=== PATIENT | female | born 1995 | race Caucasian/White ===

== ENCOUNTER 2016-06-07 18:44 | Emergency (ER) | payer OTHER ==
--- NOTE | 2016-06-07 19:24 | DIAGNOSTIC IMAGING REPORT ---
PROCEDURE: CT HEAD WITHOUT CONTRAST INDICATION: HEADACHE TECHNIQUE: Noncontrast axial images with sagittal and coronal reformations. COMPARISON: None. FINDINGS: Brain and ventricles are normal. No evidence of an acute process or hemorrhage. Sinuses and mastoids are normal. IMPRESSION: 1. Negative head CT. 2. Findings discussed with Dr. Kurtis Barbosa at [address] scans at this facility use dose modulation, iterative reconstruction, and/or weight-based dosing when appropriate to reduce radiation dose to as low as reasonably achievable.
--- NOTE | 2016-06-07 21:03 | ED NURSING NOTES ---
Clinical Report - Nurses [facility] [address] [place] [address] 06/07/2016 18:45 Patient: DAVID HALL TRIAGE Triage time 18:51 Jun 07 2016. Acuity: LEVEL 4. Chief Complaint: HEADACHE and VOMITING. 18:51 06/07/16. --18:57 Tiki Jackson R.N. 18:51 06/07/16. BP: 117/79. HR: 102. RR: 18. O2 saturation: 100%. Temp: 98.6 F. Pain level now: 12/12. --18:57 Tiki Jackson R.N. Weight: 97 kg stated. Height/Length: 63 inches Per Patient. BMI: 37.9. Growth Chart Percentile: Weight: 98.4%. Height/Length: 30.4%. --18:49 Tiki Jackson R.N. Medications None. --18:51 Tiki Jackson R.N. Medication/allergy information source: the patient. --18:57 Tiki Jackson R.N. Allergies No Known Drug Allergy. --18:51 Tiki Jackson R.N. History Arrived by private vehicle. Historian: patient. Accompanied by family. This started 7 days ago. ( States onset last friday, pain between temples, behind eyes and going to back of head . last headache like this was when she was 15). She has had nausea. ( vomiting last night once, photophobia). No vomiting. 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 PAST MEDICAL HX: Last normal menstrual period- 3 months ago. 1. Para 1. Uses depo injections. SOCIAL HX: Never smoker. No alcohol use or drug use. No recent travel. No known contact with a sick individual. ABUSE ASSESSMENT: No report of abuse. SELF HARM ASSESSMENT: A self harm assessment was performed. The patient answered "no" to the question "Have you recently felt down, depressed, or hopeless?", "Have you noticed less interest or pleasure in doing things?", "Do you have thoughts of harming or killing yourself?", "Are you here because you tried to hurt yourself?", "Have you ever tried to hurt yourself before today?", "Have you recently had thoughts about harming or killing others?" and "Do you have any dangerous items in your possession?". FALL RISK ASSESSMENT: Fall risk assessment completed. No fall risk identified. NUTRITIONAL RISK ASSESSMENT: The nutritional risk assessment revealed no deficiencies. FUNCTIONAL ASSESSMENT: Functional assessment: no impairments noted. LEARNING NEEDS ASSESSMENT: The learning needs assessment revealed no barriers. SKIN INTEGRITY ASSESSMENT: Skin integrity risk assessment completed. No skin integrity risk identified. --18:57 Tiki Jackson R.N. PROBLEMS: Vaginitis. --18:52 Tiki Jackson R.N. ADDITIONAL SURGERIES: Adenoidectomy. Appendectomy. Knee Surgery. Tonsillectomy. Trigger finger release. --18:52 Tiki Jackson R.N. Interventions ID band on patient. --18:57 Tiki Jackson R.N. NURSING PROGRESS NOTES 19:20 06/07/2016 Dilaudid (HYDROmorphone HCl PF) IM 2 mg given. Given in the right gluteus barrera. Allergies verified, confirmed 5 rights and sedative warning given to the patient. --19:23 Tiki Jackson R.N. 19:20 06/07/2016 Phenergan (Promethazine HCl) IM 25 mg given. Given in the right gluteus barrera. Allergies verified, confirmed 5 rights and sedative warning given to the patient. --19:24 Tiki Jackson R.N. 20:30 06/07/2016 Dilaudid (HYDROmorphone HCl PF) IM 1 mg given. Given in the left gluteus barrera. Allergies verified, confirmed 5 rights and sedative warning given to the patient. --20:32 Tiki Jackson R.N. 20:30 06/07/2016 Ativan (LORazepam) IM 1 mg given. Given in the left gluteus barrera. Allergies verified, confirmed 5 rights and sedative warning given to the patient and patient's family. --20:32 Tiki Jackson R.N. 20:33 06/07/2016 Zofran ODT (Ondansetron) PO Oral Disintegrating Tablets 4 mg given. Allergies verified and confirmed 5 rights. --20:33 Tiki Jackson R.N. DISPOSITION / DISCHARGE 21:06 06/07/16. Departure time: 21:06 Jun 07 2016. Condition at departure: improved and stable. The goals identified in the patient's plan of care were met. No learning barriers present. --19:06 Tiki Jackson R.N. 18:51 06/07/16. BP: 117/79. HR: 102. RR: 18. O2 saturation: 100%. Temp: 98.6 F. Pain level now: 12/12. --19:06 Tiki Jackson R.N. Locked/Released at 06/08/2016 19:06 by Tiki Jackson R.N.
--- NOTE | 2016-06-07 21:03 | ED CLINICAL REPORT ---
Clinical Report - Physicians/Mid Levels [facility] [address] [place] [address] 06/07/2016 18:45 [id number] Time Seen: 18:52 Jun 07 2016. Arrived- By private vehicle. Historian- patient. CPT: ER phys charges level 4 (#[id number]). HISTORY OF PRESENT ILLNESS Is still present. Chief Complaint: HEADACHE and MIGRAINE HEADACHE. 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 It is described as similar to previous headaches. Located in the region of the right eye and left eye and frontal and occipital region. At its maximum, severity described as moderate. When seen in the E.D., severity described as moderate. The patient has had photophobia and nausea. She has had vomiting (yesterday). No blurred vision. Similar symptoms previously: Several times, as bad. Recent medical care: The patient was seen recently at another facility in the office (yesterday). Seen for similar symptoms. Evaluation/treatment: medication and pain medication prescribed. Diagnosis: migraine. ( Vicodin). REVIEW OF SYSTEMS No fever, muscle aches, sinus pressure, ear pain or sore throat. No head injury, chest pain, difficulty breathing, cough or abdominal pain. No diarrhea, pain with urination, skin rash, enlarged lymph nodes or back pain. All systems otherwise negative, except as recorded above. PAST HISTORY History of occasional chronic migraine headaches; Chronic recurrent headaches diagnosed at age 15 called migraines. Patient said she was given medications for this but never had a CT or MRI of her head nor has she had a neurology consult. Has had no evaluation with CT scan for this. Has had no evaluation with MRI scan for this. Has had no evaluation with a neurologist for this. Medications: None. Allergies: No Known Drug Allergy. SOCIAL HISTORY Never smoker. No alcohol use or drug use. ADDITIONAL NOTES The nursing notes have been reviewed. PHYSICAL EXAM Vital Signs: 06/07/2016 18:51 BP: 117/79. HR: 102. RR: 18. O2 saturation: 100%. Temp: 98.6 F. Pain level now: 8/10. Appearance: Alert. Appears to be in pain. Patient in mild distress. Eyes: Photophobia present. Pupils equal, round and reactive to light. ENT: Ears normal. Nose normal. Pharynx normal. Neck: Normal inspection. Neck supple. No meningeal signs. CVS: Normal heart rate and rhythm. Heart sounds normal. Pulses normal. Respiratory: No respiratory distress. Breath sounds normal. Abdomen: Soft and nontender. Back: Normal inspection. Skin: Skin warm. Normal skin color. No rash. Extremities: Extremities exhibit normal ROM. No lower extremity edema. Neuro: Oriented X 3. Alert. Mood/affect normal. Speech normal. Cranial nerves normal (as tested). No cerebellar findings. No motor deficit. No sensory deficit. Reflexes normal. LABS, X-RAYS, AND EKG CT Head: Normal study. No acute changes. Head CT performed without contrast. The study was interpreted by the radiologist and discussed with the radiologist. PROGRESS AND PROCEDURES Course of Care: Dilaudid 2 mg IM. Phenergan 25 mg IM Dilaudid 1 mg IM Ativan 1 mg IM Patient is stable. Symptoms much better. Patient/family counseled. Disposition: Discharged. Condition: stable and improved. CLINICAL IMPRESSION Acute and chronic recurrent migraine headache without aura, with status migrainosus- poorly controlled. No hemiplegia. INSTRUCTIONS (Hot packs to the neck 3 times a day.). Warnings: Further evaluation is necessary. SEDATIVE MEDICATION: You were given sedative medication during your visit. Do not drive or operate dangerous machinery. GENERAL WARNINGS: Return or contact your physician immediately if your condition worsens or changes unexpectedly, if not improving as expected, or if other problems arise. Prescription Medications: Flexeril 5 mg: take 1 orally every 6 hours as needed for pain. Dispense ten (10). No refills. Substitution is permissible. Follow-up: Follow up with your doctor in one week. Call for an appointment. Follow up with a neurologist in one week. Call for the next available appointment. Understanding of the discharge instructions verbalized by patient and family. (Electronically signed by Kurtis Barbosa MD 06/11/2016 21:49)
--- NOTE | 2016-06-07 21:03 | ED NURSING NOTES ---
Clinical Report - Nurses [facility] [address] [place] [address] 06/07/2016 18:45 Patient: DAVID HALL TRIAGE Triage time 18:51 Jun 07 2016. Acuity: LEVEL 4. Chief Complaint: HEADACHE and VOMITING. 18:51 06/07/16. --18:57 Tiki Jackson R.N. 18:51 06/07/16. BP: 117/79. HR: 102. RR: 18. O2 saturation: 100%. Temp: 98.6 F. Pain level now: 12/12. --18:57 Tiki Jackson R.N. Weight: 97 kg stated. Height/Length: 63 inches Per Patient. BMI: 37.9. Growth Chart Percentile: Weight: 98.4%. Height/Length: 30.4%. --18:49 Tiki Jackson R.N. Medications None. --18:51 Tiki Jackson R.N. Medication/allergy information source: the patient. --18:57 Tiki Jackson R.N. Allergies No Known Drug Allergy. --18:51 Tiki Jackson R.N. History Arrived by private vehicle. Historian: patient. Accompanied by family. This started 7 days ago. ( States onset last friday, pain between temples, behind eyes and going to back of head . last headache like this was when she was 15). She has had nausea. ( vomiting last night once, photophobia). No vomiting. 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 PAST MEDICAL HX: Last normal menstrual period- 3 months ago. 1. Para 1. Uses depo injections. SOCIAL HX: Never smoker. No alcohol use or drug use. No recent travel. No known contact with a sick individual. ABUSE ASSESSMENT: No report of abuse. SELF HARM ASSESSMENT: A self harm assessment was performed. The patient answered "no" to the question "Have you recently felt down, depressed, or hopeless?", "Have you noticed less interest or pleasure in doing things?", "Do you have thoughts of harming or killing yourself?", "Are you here because you tried to hurt yourself?", "Have you ever tried to hurt yourself before today?", "Have you recently had thoughts about harming or killing others?" and "Do you have any dangerous items in your possession?". FALL RISK ASSESSMENT: Fall risk assessment completed. No fall risk identified. NUTRITIONAL RISK ASSESSMENT: The nutritional risk assessment revealed no deficiencies. FUNCTIONAL ASSESSMENT: Functional assessment: no impairments noted. LEARNING NEEDS ASSESSMENT: The learning needs assessment revealed no barriers. SKIN INTEGRITY ASSESSMENT: Skin integrity risk assessment completed. No skin integrity risk identified. --18:57 Tiki Jackson R.N. PROBLEMS: Vaginitis. --18:52 Tiki Jackson R.N. ADDITIONAL SURGERIES: Adenoidectomy. Appendectomy. Knee Surgery. Tonsillectomy. Trigger finger release. --18:52 Tiki Jackson R.N. Interventions ID band on patient. --18:57 Tiki Jackson R.N. NURSING PROGRESS NOTES 19:20 06/07/2016 Dilaudid (HYDROmorphone HCl PF) IM 2 mg given. Given in the right gluteus barrera. Allergies verified, confirmed 5 rights and sedative warning given to the patient. --19:23 Tiki Jackson R.N. 19:20 06/07/2016 Phenergan (Promethazine HCl) IM 25 mg given. Given in the right gluteus barrera. Allergies verified, confirmed 5 rights and sedative warning given to the patient. --19:24 Tiki Jackson R.N. 20:30 06/07/2016 Dilaudid (HYDROmorphone HCl PF) IM 1 mg given. Given in the left gluteus barrera. Allergies verified, confirmed 5 rights and sedative warning given to the patient. --20:32 Tiki Jackson R.N. 20:30 06/07/2016 Ativan (LORazepam) IM 1 mg given. Given in the left gluteus barrera. Allergies verified, confirmed 5 rights and sedative warning given to the patient and patient's family. --20:32 Tiki Jackson R.N. 20:33 06/07/2016 Zofran ODT (Ondansetron) PO Oral Disintegrating Tablets 4 mg given. Allergies verified and confirmed 5 rights. --20:33 Tiki Jackson R.N. DISPOSITION / DISCHARGE 21:06 06/07/16. Departure time: 21:06 Jun 07 2016. Condition at departure: improved and stable. The goals identified in the patient's plan of care were met. No learning barriers present. --19:06 Tiki Jackson R.N. 18:51 06/07/16. BP: 117/79. HR: 102. RR: 18. O2 saturation: 100%. Temp: 98.6 F. Pain level now: 12/12. --19:06 Tiki Jackson R.N. Locked/Released at 06/08/2016 19:06 by Tiki Jackson R.N.
--- NOTE | 2016-06-07 21:03 | ED CLINICAL REPORT ---
Clinical Report - Physicians/Mid Levels [facility] [address] [place] [address] 06/07/2016 18:45 [id number] Time Seen: 18:52 Jun 07 2016. Arrived- By private vehicle. Historian- patient. CPT: ER phys charges level 4 (#[id number]). HISTORY OF PRESENT ILLNESS Is still present. Chief Complaint: HEADACHE and MIGRAINE HEADACHE. 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 It is described as similar to previous headaches. Located in the region of the right eye and left eye and frontal and occipital region. At its maximum, severity described as moderate. When seen in the E.D., severity described as moderate. The patient has had photophobia and nausea. She has had vomiting (yesterday). No blurred vision. Similar symptoms previously: Several times, as bad. Recent medical care: The patient was seen recently at another facility in the office (yesterday). Seen for similar symptoms. Evaluation/treatment: medication and pain medication prescribed. Diagnosis: migraine. ( Vicodin). REVIEW OF SYSTEMS No fever, muscle aches, sinus pressure, ear pain or sore throat. No head injury, chest pain, difficulty breathing, cough or abdominal pain. No diarrhea, pain with urination, skin rash, enlarged lymph nodes or back pain. All systems otherwise negative, except as recorded above. PAST HISTORY History of occasional chronic migraine headaches; Chronic recurrent headaches diagnosed at age 15 called migraines. Patient said she was given medications for this but never had a CT or MRI of her head nor has she had a neurology consult. Has had no evaluation with CT scan for this. Has had no evaluation with MRI scan for this. Has had no evaluation with a neurologist for this. Medications: None. Allergies: No Known Drug Allergy. SOCIAL HISTORY Never smoker. No alcohol use or drug use. ADDITIONAL NOTES The nursing notes have been reviewed. PHYSICAL EXAM Vital Signs: 06/07/2016 18:51 BP: 117/79. HR: 102. RR: 18. O2 saturation: 100%. Temp: 98.6 F. Pain level now: 8/10. Appearance: Alert. Appears to be in pain. Patient in mild distress. Eyes: Photophobia present. Pupils equal, round and reactive to light. ENT: Ears normal. Nose normal. Pharynx normal. Neck: Normal inspection. Neck supple. No meningeal signs. CVS: Normal heart rate and rhythm. Heart sounds normal. Pulses normal. Respiratory: No respiratory distress. Breath sounds normal. Abdomen: Soft and nontender. Back: Normal inspection. Skin: Skin warm. Normal skin color. No rash. Extremities: Extremities exhibit normal ROM. No lower extremity edema. Neuro: Oriented X 3. Alert. Mood/affect normal. Speech normal. Cranial nerves normal (as tested). No cerebellar findings. No motor deficit. No sensory deficit. Reflexes normal. LABS, X-RAYS, AND EKG CT Head: Normal study. No acute changes. Head CT performed without contrast. The study was interpreted by the radiologist and discussed with the radiologist. PROGRESS AND PROCEDURES Course of Care: Dilaudid 2 mg IM. Phenergan 25 mg IM Dilaudid 1 mg IM Ativan 1 mg IM Patient is stable. Symptoms much better. Patient/family counseled. Disposition: Discharged. Condition: stable and improved. CLINICAL IMPRESSION Acute and chronic recurrent migraine headache without aura, with status migrainosus- poorly controlled. No hemiplegia. INSTRUCTIONS (Hot packs to the neck 3 times a day.). Warnings: Further evaluation is necessary. SEDATIVE MEDICATION: You were given sedative medication during your visit. Do not drive or operate dangerous machinery. GENERAL WARNINGS: Return or contact your physician immediately if your condition worsens or changes unexpectedly, if not improving as expected, or if other problems arise. Prescription Medications: Flexeril 5 mg: take 1 orally every 6 hours as needed for pain. Dispense ten (10). No refills. Substitution is permissible. Follow-up: Follow up with your doctor in one week. Call for an appointment. Follow up with a neurologist in one week. Call for the next available appointment. Understanding of the discharge instructions verbalized by patient and family. (Electronically signed by Kurtis Barbosa MD 06/11/2016 21:49)
--- NOTE | 2016-06-07 21:03 | ED ORDER SUMMARY ---
..... Patient: DAVID HALL OrderSheet [facility] VisitID: [id number] [place] [address] 20y, F Registration Date/Time: 06/07/2016 ORDER SHEET Weight: 97.0 kg (stated) Allergies: No Known Drug Allergy GENERAL ORDERS: CT Head wo Cont Urgent (19:06/07/2016 Marion MALIK) (Ack 19:12 RKaruga) MEDICATION ORDERS: Dilaudid IM 2 mg (NOW) (19:06/07/2016 Marion MALIK) (19:23 EInderbitzen R.N.) Phenergan IM 25 mg (NOW) (19:06/07/2016 Marion MALIK) (19:24 EInderbitzen R.N.) Dilaudid IM 1 mg (NOW) (20:10 06/07/2016 Marion MALIK) (20:32 EInderbharatzen R.N.) Ativan IM 1 mg (NOW) (20:10 06/07/2016 Marion MALIK) (20:32 EInderbitzen R.N.) Zofran ODT PO 4 mg (NOW) (20:11 06/07/2016 Marion MALIK) (20:33 EInderbitzen R.N.) IV FLUIDS: ORDER SHEET NOTES: [Electronically signed by Tiki Jackson R.N. (19:06 06/08/2016)] [Electronically signed by Kurtis Barbosa MD (21:49 06/11/2016)] [Electronically locked/signed by Tiki Jackson R.N. (19:06 06/08/2016)]
--- NOTE | 2016-06-07 21:03 | ED ORDER SUMMARY ---
..... Patient: DAVID HALL OrderSheet [facility] VisitID: [id number] [place] [address] 20y, F Registration Date/Time: 06/07/2016 ORDER SHEET Weight: 97.0 kg (stated) Allergies: No Known Drug Allergy GENERAL ORDERS: CT Head wo Cont Urgent (19:06/07/2016 Marion MALIK) (Ack 19:12 RKaruga) MEDICATION ORDERS: Dilaudid IM 2 mg (NOW) (19:06/07/2016 Marion MALIK) (19:23 EInderbitzen R.N.) Phenergan IM 25 mg (NOW) (19:06/07/2016 Marion MALIK) (19:24 EInderbitzen R.N.) Dilaudid IM 1 mg (NOW) (20:10 06/07/2016 Marion MALIK) (20:32 EInderbharatzen R.N.) Ativan IM 1 mg (NOW) (20:10 06/07/2016 Marion MALIK) (20:32 EInderbitzen R.N.) Zofran ODT PO 4 mg (NOW) (20:11 06/07/2016 Marion MALIK) (20:33 EInderbitzen R.N.) IV FLUIDS: ORDER SHEET NOTES: [Electronically signed by Tiki Jackson R.N. (19:06 06/08/2016)] [Electronically signed by Kurtis Barbosa MD (21:49 06/11/2016)] [Electronically locked/signed by Tiki Jackson R.N. (19:06 06/08/2016)]
--- NOTE | 2016-06-11 21:49 | ED DISCHARGE INSTRUCTIONS ---
Patient: DAVID HALL General Instructions [facility] VisitID: [id number] [place] [address] 20y, F Registration Date/Time: 06/07/2016 Acute and chronic recurrent migraine headache without aura, with status migrainosus- poorly controlled. No hemiplegia. INSTRUCTIONS (Hot packs to the neck 3 times a day.). Warnings: Further evaluation is necessary. SEDATIVE MEDICATION: You were given sedative medication during your visit. Do not drive or operate dangerous machinery. GENERAL WARNINGS: Return or contact your physician immediately if your condition worsens or changes unexpectedly, if not improving as expected, or if other problems arise. Prescription Medications: Flexeril 5 mg: take 1 orally every 6 hours as needed for pain. Dispense ten (10). No refills. Substitution is permissible. Follow-up: Follow up with your doctor in one week. Call for an appointment. Follow up with a neurologist in one week. Call for the next available appointment. Understanding of the discharge instructions verbalized by patient and family. ADDITIONAL INFORMATION Migraine Headache Migraine headaches are related to changes in blood flow to the brain. This causes throbbing or constant pain on one or both sides of the head. The pain may last from a few hours to several days. There is usually nausea, vomiting, sensitivity to light and sound, and blurred vision. A migraine attack may be triggered by emotional stress, hormone changes during the menstrual cycle, oral contraceptives, alcohol use, certain foods containing tyramine, eye strain, weather changes, missing meals, or too little or too much sleep. Home Care For This Headache: 1) If you were given pain medicine for this headache, do not drive yourself home . Arrange for a ride, instead. When you get home, try to sleep. You should feel much better when you wake up. 2) Migraine headaches may improve with an ice pack on the forehead or at the base of the skull. Heat to the back of your neck may relieve any neck spasm. 3) Drink only clear liquids or eat a very light diet to avoid nausea/vomiting until symptoms improve. Preventing Future Headaches: 1) Pay attention to those factors that seem to trigger your headache. Try to avoid them when you can. If you have frequent headaches, it is useful to keep a diary of what you were doing, feeling or eating in the hours before each attack. Show this to your doctor to help find the cause of your headaches. a) If you feel that stress is a factor in your headaches, look at the sources of stress in your life. Find ways to release the build-up of those stresses by using regular exercise, relaxation methods (yoga, meditation), bio-feedback or simply taking time-out for yourself. For more information about this, consult your doctor or go to a local bookstore and review books and tapes on this subject. b) Tyramine is a substance present in the following foods : chocolate, yogurt, all cheeses except cottage cheese and cream cheese. smoked or pickled fish and meat (including cruz, caviar, bologna, pepperoni, salami), liver, avocados, bananas, figs, raisins, and red wine. Be aware that these foods may trigger a migraine in some persons. Try taking these foods out of your diet for 1-2 months to see if this reduces headache frequency. Treating Future Attacks: 1) At the first sign of a headache, take time out if possible. Find a quiet, dark, comfortable place to sit or lie down. Let yourself relax or sleep. 2) An ice pack on the forehead or area of greatest pain may help. If you are having muscle spasm and tightness of the neck, a heating pad and massage to this area may be helpful. 3) If you have been prescribed a medicine to stop a migraine headache, use this at the very first warning sign of the headache (aura or initial pain) for best results. Follow Up with your doctor if the headache is not better within the next 24 hours. If you have frequent headaches you should discuss a treatment plan with your primary care doctor. Ask if you can have medicine to take at home the next time you get a bad headache. Poorly controlled chronic headaches may require a referral to a neurologist (headache specialist). Get Prompt Medical Attention if any of the following occur: Your head pain gets worse, or does not improve within 24 hours Repeated vomiting (cant keep liquids down) Sinus or ear or throat pain (not already reported) Fever of 100.4 F (38 C) or higher, or as directed by your healthcare provider Stiff neck Extreme drowsiness, confusion or fainting Dizziness, vertigo (dizziness with spinning sensation) Weakness of an arm or leg or one side of the face Difficulty with speech or vision Cyclobenzaprine Hydrochloride Oral tablet What is this medicine? CYCLOBENZAPRINE (wade aguilar) is a muscle relaxer. It is used to treat muscle pain, spasms, and stiffness. How should I use this medicine? Take this medicine by mouth with a glass of water. Follow the directions on the prescription label. If this medicine upsets your stomach, take it with food or milk. Take your medicine at regular intervals. Do not take it more often than directed. Talk to your chamber worker regarding the use of this medicine in children. Special care may be needed. What side effects may I notice from receiving this medicine? Side effects that you should report to your doctor or health companion caregiver as soon as possible: allergic reactions like skin rash, itching or hives, swelling of the face, lips, or tongue chest pain fast heartbeat hallucinations seizures vomiting Side effects that usually do not require medical attention (report to your doctor or health companion caregiver if they continue or are bothersome): headache What may interact with this medicine? Do not take this medicine with any of the following medications: cisapride droperidol flecainide grepafloxacin halofantrine levomethadyl MAOIs like Carbex, Eldepryl, Marplan, Nardil, and Parnate nilotinib pimozide probucol sertindole This medicine may also interact with the following medications: abarelix alcohol contrast dyes dolasetron guanethidine medicines for cancer medicines for depression, anxiety, or psychotic disturbances medicines to treat an irregular heartbeat medicines used for sleep or numbness during surgery or procedure methadone octreotide ondansetron palonosetron phenothiazines like chlorpromazine, mesoridazine, prochlorperazine, thioridazine some medicines for infection like alfuzosin, chloroquine, clarithromycin, levofloxacin, mefloquine, pentamidine, troleandomycin tramadol vardenafil What if I miss a dose? If you miss a dose, take it as soon as you can. If it is almost time for your next dose, take only that dose. Do not take double or extra doses. Where should I keep my medicine? Keep out of the reach of children. Store at room temperature between 15 and 30 degrees C (59 and 86 degrees F). Keep container tightly closed. Throw away any unused medicine after the expiration date. What should I tell my health care provider before I take this medicine? They need to know if you have any of these conditions: heart disease, irregular heartbeat, or previous heart attack liver disease thyroid problem an unusual or allergic reaction to cyclobenzaprine, tricyclic antidepressants, lactose, other medicines, foods, dyes, or preservatives or trying to get breast-feeding What should I watch for while using this medicine? Check with your doctor or health companion caregiver if your condition does not improve within 1 to 3 weeks. You may get drowsy or dizzy when you first start taking the medicine or change doses. Do not drive, use machinery, or do anything that may be dangerous until you know how the medicine affects you. Stand or sit up slowly. Your mouth may get dry. Drinking water, chewing sugarless gum, or sucking on hard candy may help. You have been given the following additional information: Headache, Migraine (Classical) Cyclobenzaprine Hydrochloride Oral tablet (Electronically signed by Kurtis Barbosa MD 06/11/2016 21:49)
--- NOTE | 2016-06-11 21:49 | ED MAR SUMMARY ---
..... Medication Administration Record [facility] [address] [place] [address] Patient: DAVID HALL Visit ID: [id number] 20y, F Weight: 97.0 kg Height/Length: 63 in BMI: 37.9 ALLERGIES: No Known Drug Allergy Given 19:06/07/2016 Tiki Jackson R.N. Medication Administered: DILAUDID [IM] (HYDROMORPHONE HCL PF), Dose: 2 mg IM. Medication Ordered: Dilaudid IM 2 mg (NOW). Given 19:06/07/2016 Tiki Jackson R.N. Medication Administered: PHENERGAN [IM] (PROMETHAZINE HCL), Dose: 25 mg IM. Medication Ordered: Phenergan IM 25 mg (NOW). Given 20:06/07/2016 Tiki Jackson R.N. Medication Administered: DILAUDID [IM] (HYDROMORPHONE HCL PF), Dose: 1 mg IM. Medication Ordered: Dilaudid IM 1 mg (NOW). Given 20:06/07/2016 Tiki Jackson R.N. Medication Administered: ATIVAN [IM] (LORAZEPAM), Dose: 1 mg IM. Medication Ordered: Ativan IM 1 mg (NOW). Given 20:06/07/2016 Tiki Jackson R.N. Medication Administered: ZOFRAN ODT [PO] (ONDANSETRON), Dose: 4 mg Oral Disintegrating Tablets PO. Medication Ordered: Zofran ODT PO 4 mg (NOW).
--- NOTE | 2016-06-11 21:49 | ED MED RECONCILIATION SUMMARY ---
Patient: DAVID HALL Medication Reconciliation Report [facility] VisitID: [id number] [place] [address] 20y, F Registration Date/Time: 06/07/2016 Weight: 97.0 kg Height/Length: 63 in. BMI: 37.9 ALLERGIES: No Known Drug Allergy The patient's Home Medications are listed below: NONE. The source(s) of the original Home Medication information: patient The following Medications were given to the patient in the Emergency Department: Dilaudid [IM] IM 2 mg, administered: 06/07/2016 7:20:00 PM Phenergan [IM] IM 25 mg, administered: 06/07/2016 7:20:00 PM Dilaudid [IM] IM 1 mg, administered: 06/07/2016 8:30:00 PM Ativan [IM] IM 1 mg, administered: 06/07/2016 8:30:00 PM Zofran ODT [PO] PO 4 mg, administered: 06/07/2016 8:33:00 PM The following Medications were prescribed to the patient: Flexeril 5 mg: take 1 orally every 6 hours as needed for pain. Dispense ten (10). No refills. Substitution is permissible. -- Kurtis Barbosa MD
--- NOTE | 2016-06-11 21:49 | ED MED RECONCILIATION SUMMARY ---
Patient: DAVID HALL Medication Reconciliation Report [facility] VisitID: [id number] [place] [address] 20y, F Registration Date/Time: 06/07/2016 Weight: 97.0 kg Height/Length: 63 in. BMI: 37.9 ALLERGIES: No Known Drug Allergy The patient's Home Medications are listed below: NONE. The source(s) of the original Home Medication information: patient The following Medications were given to the patient in the Emergency Department: Dilaudid [IM] IM 2 mg, administered: 06/07/2016 7:20:00 PM Phenergan [IM] IM 25 mg, administered: 06/07/2016 7:20:00 PM Dilaudid [IM] IM 1 mg, administered: 06/07/2016 8:30:00 PM Ativan [IM] IM 1 mg, administered: 06/07/2016 8:30:00 PM Zofran ODT [PO] PO 4 mg, administered: 06/07/2016 8:33:00 PM The following Medications were prescribed to the patient: Flexeril 5 mg: take 1 orally every 6 hours as needed for pain. Dispense ten (10). No refills. Substitution is permissible. -- Kurtis Barbosa MD
--- NOTE | 2016-06-11 21:49 | ED MAR SUMMARY ---
..... Medication Administration Record [facility] [address] [place] [address] Patient: DAVID HALL Visit ID: [id number] 20y, F Weight: 97.0 kg Height/Length: 63 in BMI: 37.9 ALLERGIES: No Known Drug Allergy Given 19:06/07/2016 Tiki Jackson R.N. Medication Administered: DILAUDID [IM] (HYDROMORPHONE HCL PF), Dose: 2 mg IM. Medication Ordered: Dilaudid IM 2 mg (NOW). Given 19:06/07/2016 Tiki Jackson R.N. Medication Administered: PHENERGAN [IM] (PROMETHAZINE HCL), Dose: 25 mg IM. Medication Ordered: Phenergan IM 25 mg (NOW). Given 20:06/07/2016 Tiki Jackson R.N. Medication Administered: DILAUDID [IM] (HYDROMORPHONE HCL PF), Dose: 1 mg IM. Medication Ordered: Dilaudid IM 1 mg (NOW). Given 20:06/07/2016 Tiki Jackson R.N. Medication Administered: ATIVAN [IM] (LORAZEPAM), Dose: 1 mg IM. Medication Ordered: Ativan IM 1 mg (NOW). Given 20:06/07/2016 Tiki Jackson R.N. Medication Administered: ZOFRAN ODT [PO] (ONDANSETRON), Dose: 4 mg Oral Disintegrating Tablets PO. Medication Ordered: Zofran ODT PO 4 mg (NOW).
[2016-08-01] MEDS ORDERED: DEPO-PROVER150 MG/ML (15:46)
[2016-08-01] MEDS ORDERED: ADVIL200 M1 PO (15:47)
== END 2016-06-07 21:06 | disposition home or self-care (01) ==
LOC: ED SRH 18:44
DX: G43.711 Chronic migraine without aura, intractable, with status migrainosus (principal)

== ENCOUNTER 2016-07-20 17:54 | Emergency (ER) | payer OTHER ==
--- NOTE | 2016-07-20 19:50 | ED NURSING NOTES ---
Clinical Report - Nurses [facility] [address] [place] [address] 07/20/2016 17:55 [id number] Triage time 17:59 Jul 20 2016. Acuity: LEVEL 4. Chief Complaint: ABDOMINAL PAIN, NAUSEA, VOMITING and DIARRHEA and (RUQ pain radiates to back, nausea and vomiting as well). 18:07 07/20/16. SEPSIS SCREEN: Sepsis Screen. Negative (no infection suspected/documented). THA COMA SCORE: Tha Coma Scale: 15- eyes open spontaneously (4); best verbal response- oriented x 4 (5); best motor response- obeys commands (6). --18:07 Amina Pickett R.N. 17:59 07/20/16. BP: 128/81 (regular adult cuff) taken on the left arm, while sitting. HR: 108. RR: 18 (regular). O2 saturation: 100% on room air. Temp: 98.4 F (oral). Pain level now: 08/12. --18:07 Amina Pickett R.N. Weight: 92.5 kg stated. Height/Length: 62 inches Per Patient. BMI: 37.3. Growth Chart Percentile: Weight: 97.7%. Height/Length: 18%. --18:00 Amina Pickett R.N. Medications None. --18:01 Amina Pickett R.N. Allergies No Known Drug Allergy. --18:01 Amina Pickett R.N. History Historian: patient. Primary physician (KATELYNN FRANCO). This started yesterday. Onset. (RUQ pain radiates to back, nausea and vomiting as well). She has had nausea, vomiting and diarrhea. She has had abdominal pain (Patient has had her appendix removed). The pain is described as located in the RUQ. She has had fever (fever yesterday). Last oral intake by patient was (on way over). PAST MEDICAL HX: Immunizations: up-to-date. Last normal menstrual period- Patient on Depo Provera shots. SOCIAL HX: Never smoker. No alcohol use or drug use. No recent travel. She has had contact with a sick family member. (Son had pneumonia). No infectious disease exposure. ABUSE ASSESSMENT: No report of abuse. --18:07 Amina Pickett R.N. PROBLEMS: Migraine Headache. Chronic Headache. Intrauterine . Vaginitis. Gastroenteritis. Polycystic Ovary Disease. --18: Amina Pickett R.N. ADDITIONAL SURGERIES: Adenoidectomy. Appendectomy. Knee Surgery. Tonsillectomy. Trigger finger release. --18: Amina Pickett R.N. Interventions ID band on patient. To treatment room. --18:07 Amina Pickett R.N. PHYSICAL ASSESSMENT 18:08 07/20/16. Ambulatory to room. GENERAL / NEURO / PSYCH: Alert. Oriented X 4. Appears in pain. HEENT: Mucous membranes are pink. RESPIRATORY: Respirations not labored. Breath sounds within normal limits. CVS: Capillary refill less than 2 seconds. GI / : The patient has had nausea and diarrhea. Abdomen soft. Abdominal tenderness in the right upper quadrant. Guarding present. Bowel sounds within normal limits. Green and yellow stool. SKIN: Skin is warm. --18:08 Amina Pickett R.N. NURSING PROGRESS NOTES 18:07/20/16. The plan of care for this patient has been created. Patient gowned. Head of bed elevated. Reassurance given. Two patient identifiers checked. Call light placed in reach. Side rails up x 1. Bed placed in lowest position. Brakes of bed on. Patient ready for evaluation- chart flagged and ED physician notified. --18:08 Amina Pickett R.N. 18:42 07/20/2016 Site #1 started via IV in the right antecubital space with an 20g angiocath, with aseptic technique and good blood return; one attempt. Blood drawn: rainbow set. Labeled in the presence of the patient and sent to the lab. Saline lock flushed with 10 mL saline. --18:42 Amina Pickett R.N. 18:42 07/20/2016 Started bag #1 1000 mL IV Fluids IV NS (Saline); at 1000 mL/hr over 1 hour(s) via site #1 via dial-a-flow. Allergies verified and confirmed 5 rights. IV patency established. IV site checked: no pain, redness, or swelling. IV flushed thoroughly pre- and post-medication administration. --18:42 Amina Pickett R.N. 18:43 07/20/2016 Toradol IVP 30 mg given over 1 minute(s) via site #1. Allergies verified and confirmed 5 rights. IV patency established. IV site checked: no pain, redness, or swelling. IV flushed thoroughly pre- and post-medication administration. IVP given by RN. --18:44 Amina Pickett R.N. 18:44 07/20/2016 Zofran (Ondansetron HCl) IVP 4 mg given over 1 minute(s) via site #1. Allergies verified and confirmed 5 rights. IV patency established. IV site checked: no pain, redness, or swelling. IV flushed thoroughly pre- and post-medication administration. IVP given by RN. --18:46 Amina Pickett R.N. 19:05 07/20/16. BP: 111/70 (regular adult cuff) taken on the left arm, while lying. HR: 94. RR: 18 (regular). O2 saturation: 98% on room air. Temp: 98.4 F (oral). Pain level now: 5/10. --19:07 Amina Pickett R.N. 19:07 07/20/16. ( sister and son sitting at patients bedside, she says her pain has increased to 5/10 and has become more nauseated, informed her that the medications probably have not had enough time to make her feel better yet. Instructed her to call nurse in 15 minutes if not better. Patient given reassurance and an emesis bag). --19:07 Amina Pickett R.N. 19:10 07/20/16. Care transferred and report given (GRISELDA Saenz). --19:10 Amina Pickett R.N. Reassessment after medication administered. Overall patient status is the same. ( Received report from out going RN. Patient stated pain level is about the same after pain medication. NS infusing and Vital signs stable. Will continue to monitor.). --19:23 Sheriff Fleming R.N. 19:45 07/20/2016 IV Fluids IV NS Discontinued: bag #1 infused. Total amount infused: 1000 mL. IV patency established IV site checked: no pain, redness, or swelling IV flushed thoroughly. --20:07 Sheriff Fleming R.N. 20:08 07/20/2016 Site #1 removed. Catheter intact. Bandage applied. --20:08 Sheriff Fleming R.N. DISPOSITION / DISCHARGE Condition at departure: stable. No learning barriers present. Discharge instructions provided and reviewed with the patient. Reviewed medication(s) side effects, precautions, dosing and course information. Prescription(s) given to the patient. Patient verbalized understanding. Written instructions provided in Swedish. The patient was discharged by the physician. She was discharged home and accompanied by Friend. She left the Emergency Department ambulatory and via private vehicle. Driving (Friend). --20:06 Sheriff Fleming R.N. 20:04 07/20/16. BP: 110/77. HR: 97. RR: 18. O2 saturation: 98%. Temp: 98.4 F. Pain level now: 08/12. --20:06 Sheriff Fleming R.N. Locked/Released at 07/20/2016 20:09 by Sheriff Fleming R.N.
--- NOTE | 2016-07-20 19:50 | ED CLINICAL REPORT ---
Clinical Report - Physicians/Mid Levels [facility] [address] [place] [address] 07/20/2016 17:55 Patient: DAVID HALL Time Seen: 17:58; initial patient contact. Arrived- By private vehicle. Historian- patient. HISTORY OF PRESENT ILLNESS Chief Complaint: ABDOMINAL PAIN. At its maximum, severity described as moderate. When seen in the E.D., severity described as moderate. Modifying factors. Not worsened by anything. Not relieved by anything. This started yesterday and is still present (persistent). It was gradual in onset and has been waxing/waning. It is described as sharp and cramping and it is described as located in the right upper quadrant and radiating to the upper back. The patient has had nausea, loss of appetite, vomiting and diarrhea. No recent travel. Similar symptoms previously: None. Recent medical care: Not recently seen/assessed. REVIEW OF SYSTEMS No constipation, pain with urination or urinary frequency. She has had fever and chills. All systems otherwise negative, except as recorded above. PAST HISTORY Vaginitis. SURGERIES: Adenoidectomy. Appendectomy. Knee Surgery. Tonsillectomy. Trigger finger release. -. Medications: None. None. Allergies: No Known Drug Allergy. SOCIAL HISTORY Never smoker. No alcohol use or drug use. ADDITIONAL NOTES The nursing notes have been reviewed with agreement regarding the chief complaint, PMH and patient medications and allergies. PHYSICAL EXAM Vital Signs: 07/20/2016 17:59 BP: 128/81. HR: 108. RR: 18. O2 saturation: 100%. Temp: 98.4 F. Pain level now: 08/12. Have been reviewed. Blood pressure normal. Tachycardic. Respiratory rate normal. Temperature normal. Oxygen saturation normal. Appearance: Alert. Oriented X3. Appears to be in pain. Eyes: No scleral icterus. ENT: Dry mucous membranes present. CVS: Tachycardia. Heart sounds normal. Rhythm normal. Respiratory: No respiratory distress. Breath sounds normal. Abdomen: Soft. Moderate tenderness in the right upper quadrant with guarding present. Positive Winchester's sign. No rebound tenderness. Bowel sounds normal. No organomegaly. No mass. Back: Normal inspection. No CVA tenderness. Skin: Normal skin color. No rash. Neuro: Oriented X 3. LABS, X-RAYS, AND EKG Laboratory Tests: UA-Culture if indicated: (STEPHANIE: 07/20/2016 17:10) ( [facility] [place] 07/20/2016 18:46) Final results Test Result Flag Units (Reference) URINE COLOR YELLOW URINE APPEARANCE SL CLOUDY URINE GLUCOSE NEGATIVE (NEGATIVE) URINE BILIRUBIN NEGATIVE (NEGATIVE) URINE KETONE NEGATIVE (NEGATIVE) URINE SPECIFIC GRAVITY >= 1.030 (1.010-1.030) URINE PH 5.5 (5.0-8.0) URINE PROTEIN TRACE (NEGATIVE) URINE UROBILINOGEN 0.2 EU/dL (0.2-1.0) URINE NITRITE NEGATIVE (NEGATIVE) URINE BLOOD NEGATIVE (NEGATIVE) URINE LEUK ESTERASE NEGATIVE (NEGATIVE) URINE RBC 0-1 rbc/hpf (0-1) URINE WBC 5-10 wbc/hpf (0-1) URINE EPITHELIAL CELLS 10-15 EPI/hpf (0-5) URINE BACTERIA MODERATE (2+ TO 3+) (NONE SEEN) 3 m.l. patient sample submitted2+ MUCUS1+ AMORPHOUS URINE COMMENT CULTURE INDICATED URINE CULTURES ARE SET-UP BASED ON THE FOLLOWING CRITERIA:POSITIVE NITRITEPOSITIVE LEUKOCYTE ESTERASEGREATER THAN 10 WHITE BLOOD CELLSMODERATE (2+) OR GREATER BACTERIA Urine: (STEPHANIE: 07/20/2016 17:10) ( [facility] [place] 07/20/2016 18:45) Final results Test Result Flag Units (Reference) URINE NEGATIVE CBC w Diff: (STEPHANIE: 07/20/2016 18:40) ( [facility] [place] 07/20/2016 19:07) Final results Test Result Flag Units (Reference) WHITE BLOOD COUNT 6.8 K/uL (4.5-11.5) RED BLOOD COUNT 5.08 M/uL (4.00-5.20) HEMOGLOBIN 14.0 gm/dL (12.0-16.0) HEMATOCRIT 41.0 % (36.0-46.0) MEAN CELL VOLUME 81 fL (80-100) MEAN CORPUSCULAR HGB 28 pg (26-34) MEAN CORPUSCULAR HGB CONC 34 g/dL (31-37) RED CELL DISTRIBUTION WIDTH 14.2 % (11.6-14.8) PLATELET COUNT 238 K/uL (150-400) NEUTROPHIL % 42.1 L % (50-75) LYMPH % 44.5 H % (25-40) MONO % 10.1 % (3-14) EOSINOPHIL % 2.6 % (0-4) BASOPHIL % 0.7 % (0-2) CMP: (STEPHANIE: 07/20/2016 18:40) ( MsgRcvd 07/20/2016 19:21) Final results Test Result Flag Units (Reference) GLUCOSE 80 mg/dL (70-110) BUN 10 mg/dL (7-18) CREATININE 0.9 mg/dL (0.6-1.3) Estimated GFR >60 mL/min Estimated GFR- >60 mL/min Note: Persistent reduction over 3 months in eGFR<60 mL/min/1.73 m2 defines CKD. Patients with eGFR values>=60 mL/min/1.73 m2 may also have CKD if evidence ofpersistent proteinuria. Additional information may be foundat www.kidney.org. SODIUM 141 mmol/L (136-145) POTASSIUM 3.7 mmol/L (3.5-5.1) CHLORIDE 105 mmol/L (98-107) CARBON DIOXIDE 25 mmol/L (21-32) CALCIUM 9.1 mg/dL (8.5-10.1) TOTAL PROTEIN 7.7 g/dL (6.4-8.2) ALBUMIN 3.9 g/dL (3.3-5.0) BILIRUBIN, TOTAL 0.5 mg/dL (0.0-1.0) ALKALINE PHOSPHATASE 81 U/L (46-116) AST (SGOT) 30 U/L (15-37) ALT (SGPT) 62 U/L (12-78) LIPASE 130 U/L (73-393) AMYLASE 39 U/L (25-115) . PROGRESS AND PROCEDURES Course of Care: 19:49 07/20/16. No evidence of biliary obstruction and afebrile w/ nl WBC. Likely biliary dyskinesia. Will refer to gen surg out pt. Disposition: Discharged home in good condition. Condition: good. CLINICAL IMPRESSION Biliary colic. No cholecystitis. INSTRUCTIONS Drink plenty of fluids. Avoid fatty, fried/greasy and spicy foods. Your Current Medications: CONTINUE TAKING THE FOLLOWING MEDICATIONS: None*. None*. Prescription Medications: Hydrocodone/APAP 5mg / 325mg: take 1 orally every 6 hours as needed for pain. Dispense twenty (20). No refill. Zofran (orally disintegrating tablets) 4 mg: take 1 orally every 6 hours as needed for nausea and vomiting. Dispense ten (10). No refill. Substitution is permissible. Follow-up: Screening today revealed the patient's blood pressure to be in the normal range. Follow-up with: Constantine Brikn MD, General Surgeon, , [facility], [address] [place] [address] Follow up in about two days. Call for an appointment. (Electronically signed by Favian Quiroga Dr. 07/20/2016 20:04)
--- NOTE | 2016-07-20 19:50 | ED ORDER SUMMARY ---
..... Patient: DAVID HALL OrderSheet [facility] VisitID: [id number] [address] [place] [address] 20y, F Registration Date/Time: 07/20/2016 ORDER SHEET Weight: 92.5 kg (stated) Allergies: No Known Drug Allergy GENERAL ORDERS: CBC w Diff Urgent (18:07/20/2016 Panda Theodore) (Ack 18:27 Marc) (18:41 JSanders R.N.) CMP Urgent (18:07/20/2016 Panda Theodore) (Ack 18:27 Marc) (18:41 JSanders R.N.) UA-Culture if indicated Urgent (18:07/20/2016 Panda Theodore) (Ack 18:27 Marc) (18:41 JSanders R.N.) Amylase Urgent (18:07/20/2016 Panda Theodore) (Ack 18:27 Marc) (18:41 JSanders R.N.) Lipase Urgent (18:07/20/2016 Panda Theodore) (Ack 18:27 Marc) (18:41 JSanders R.N.) Urine Urgent (18:07/20/2016 Panda Theodore) (Ack 18:27 Marc) (18:41 JSanders R.N.) MEDICATION ORDERS: IV FLUIDS: IV NS : initial bolus none -, then 1000 mL/hr for X1 (NOW) (18:07/20/2016 Panda Theodore) (18:42 JSanders R.N.) Toradol IV 30 mg (NOW) (18:07/20/2016 Panda Theodore) (18:44 JSanders R.N.) Zofran IV 4 mg (NOW) (18:07/20/2016 Panda Theodore) (18:46 JSanders R.N.) ORDER SHEET NOTES: [Electronically signed by Favian Quiroga Dr. (20:04 07/20/2016)] [Electronically signed by Sheriff Chato Fleming (20:07/20/2016)] [Electronically locked/signed by Sheriff Chato Fleming (20:09 07/20/2016)]
--- NOTE | 2016-07-20 19:50 | ED CLINICAL REPORT ---
Clinical Report - Physicians/Mid Levels [facility] [address] [place] [address] 07/20/2016 17:55 Patient: DAVID HALL Time Seen: 17:58; initial patient contact. Arrived- By private vehicle. Historian- patient. HISTORY OF PRESENT ILLNESS Chief Complaint: ABDOMINAL PAIN. At its maximum, severity described as moderate. When seen in the E.D., severity described as moderate. Modifying factors. Not worsened by anything. Not relieved by anything. This started yesterday and is still present (persistent). It was gradual in onset and has been waxing/waning. It is described as sharp and cramping and it is described as located in the right upper quadrant and radiating to the upper back. The patient has had nausea, loss of appetite, vomiting and diarrhea. No recent travel. Similar symptoms previously: None. Recent medical care: Not recently seen/assessed. REVIEW OF SYSTEMS No constipation, pain with urination or urinary frequency. She has had fever and chills. All systems otherwise negative, except as recorded above. PAST HISTORY Vaginitis. SURGERIES: Adenoidectomy. Appendectomy. Knee Surgery. Tonsillectomy. Trigger finger release. -. Medications: None. None. Allergies: No Known Drug Allergy. SOCIAL HISTORY Never smoker. No alcohol use or drug use. ADDITIONAL NOTES The nursing notes have been reviewed with agreement regarding the chief complaint, PMH and patient medications and allergies. PHYSICAL EXAM Vital Signs: 07/20/2016 17:59 BP: 128/81. HR: 108. RR: 18. O2 saturation: 100%. Temp: 98.4 F. Pain level now: 08/12. Have been reviewed. Blood pressure normal. Tachycardic. Respiratory rate normal. Temperature normal. Oxygen saturation normal. Appearance: Alert. Oriented X3. Appears to be in pain. Eyes: No scleral icterus. ENT: Dry mucous membranes present. CVS: Tachycardia. Heart sounds normal. Rhythm normal. Respiratory: No respiratory distress. Breath sounds normal. Abdomen: Soft. Moderate tenderness in the right upper quadrant with guarding present. Positive Winchester's sign. No rebound tenderness. Bowel sounds normal. No organomegaly. No mass. Back: Normal inspection. No CVA tenderness. Skin: Normal skin color. No rash. Neuro: Oriented X 3. LABS, X-RAYS, AND EKG Laboratory Tests: UA-Culture if indicated: (STEPHANIE: 07/20/2016 17:10) ( [facility] [place] 18:46) Final results Test Result Flag Units (Reference) URINE COLOR YELLOW URINE APPEARANCE SL CLOUDY URINE GLUCOSE NEGATIVE (NEGATIVE) URINE BILIRUBIN NEGATIVE (NEGATIVE) URINE KETONE NEGATIVE (NEGATIVE) URINE SPECIFIC GRAVITY >= 1.030 (1.010-1.030) URINE PH 5.5 (5.0-8.0) URINE PROTEIN TRACE (NEGATIVE) URINE UROBILINOGEN 0.2 EU/dL (0.2-1.0) URINE NITRITE NEGATIVE (NEGATIVE) URINE BLOOD NEGATIVE (NEGATIVE) URINE LEUK ESTERASE NEGATIVE (NEGATIVE) URINE RBC 0-1 rbc/hpf (0-1) URINE WBC 5-10 wbc/hpf (0-1) URINE EPITHELIAL CELLS 10-15 EPI/hpf (0-5) URINE BACTERIA MODERATE (2+ TO 3+) (NONE SEEN) 3 m.l. patient sample submitted2+ MUCUS1+ AMORPHOUS URINE COMMENT CULTURE INDICATED URINE CULTURES ARE SET-UP BASED ON THE FOLLOWING CRITERIA:POSITIVE NITRITEPOSITIVE LEUKOCYTE ESTERASEGREATER THAN 10 WHITE BLOOD CELLSMODERATE (2+) OR GREATER BACTERIA Urine: (STEPHANIE: 07/20/2016 17:10) ( [facility] [place] 07/[place] 18:45) Final results Test Result Flag Units (Reference) URINE NEGATIVE CBC w Diff: (STEPHANIE: 07/20/2016 18:40) ( [facility] [place] 07/20/2016 19:07) Final results Test Result Flag Units (Reference) WHITE BLOOD COUNT 6.8 K/uL (4.5-11.5) RED BLOOD COUNT 5.08 M/uL (4.00-5.20) HEMOGLOBIN 14.0 gm/dL (12.0-16.0) HEMATOCRIT 41.0 % (36.0-46.0) MEAN CELL VOLUME 81 fL (80-100) MEAN CORPUSCULAR HGB 28 pg (26-34) MEAN CORPUSCULAR HGB CONC 34 g/dL (31-37) RED CELL DISTRIBUTION WIDTH 14.2 % (11.6-14.8) PLATELET COUNT 238 K/uL (150-400) NEUTROPHIL % 42.1 L % (50-75) LYMPH % 44.5 H % (25-40) MONO % 10.1 % (3-14) EOSINOPHIL % 2.6 % (0-4) BASOPHIL % 0.7 % (0-2) CMP: (STEPHANIE: 07/20/2016 18:40) ( MsgRcvd 07/20/2016 19:21) Final results Test Result Flag Units (Reference) GLUCOSE 80 mg/dL (70-110) BUN 10 mg/dL (7-18) CREATININE 0.9 mg/dL (0.6-1.3) Estimated GFR >60 mL/min Estimated GFR- >60 mL/min Note: Persistent reduction over 3 months in eGFR<60 mL/min/1.73 m2 defines CKD. Patients with eGFR values>=60 mL/min/1.73 m2 may also have CKD if evidence ofpersistent proteinuria. Additional information may be foundat www.kidney.org. SODIUM 141 mmol/L (136-145) POTASSIUM 3.7 mmol/L (3.5-5.1) CHLORIDE 105 mmol/L (98-107) CARBON DIOXIDE 25 mmol/L (21-32) CALCIUM 9.1 mg/dL (8.5-10.1) TOTAL PROTEIN 7.7 g/dL (6.4-8.2) ALBUMIN 3.9 g/dL (3.3-5.0) BILIRUBIN, TOTAL 0.5 mg/dL (0.0-1.0) ALKALINE PHOSPHATASE 81 U/L (46-116) AST (SGOT) 30 U/L (15-37) ALT (SGPT) 62 U/L (12-78) LIPASE 130 U/L (73-393) AMYLASE 39 U/L (25-115) . PROGRESS AND PROCEDURES Course of Care: 19:49 07/20/16. No evidence of biliary obstruction and afebrile w/ nl WBC. Likely biliary dyskinesia. Will refer to gen surg out pt. Disposition: Discharged home in good condition. Condition: good. CLINICAL IMPRESSION Biliary colic. No cholecystitis. INSTRUCTIONS Drink plenty of fluids. Avoid fatty, fried/greasy and spicy foods. Your Current Medications: CONTINUE TAKING THE FOLLOWING MEDICATIONS: None*. None*. Prescription Medications: Hydrocodone/APAP 5mg / 325mg: take 1 orally every 6 hours as needed for pain. Dispense twenty (20). No refill. Zofran (orally disintegrating tablets) 4 mg: take 1 orally every 6 hours as needed for nausea and vomiting. Dispense ten (10). No refill. Substitution is permissible. Follow-up: Screening today revealed the patient's blood pressure to be in the normal range. Follow-up with: Constantine Brink MD, General Surgeon, , [facility], [address] [place] [address] Follow up in about two days. Call for an appointment. (Electronically signed by Favian Quiroga Dr. 07/20/2016 20:04)
--- NOTE | 2016-07-20 19:50 | ED ORDER SUMMARY ---
..... Patient: DAVID HALL OrderSheet [facility] VisitID: [id number] [address] [place] [address] 20y, F Registration Date/Time: 07/20/2016 ORDER SHEET Weight: 92.5 kg (stated) Allergies: No Known Drug Allergy GENERAL ORDERS: CBC w Diff Urgent (18:07/20/2016 Panda Theodore) (Ack 18:27 Marc) (18:41 JSanders R.N.) CMP Urgent (18:07/20/2016 Panda Theodore) (Ack 18:27 Marc) (18:41 JSanders R.N.) UA-Culture if indicated Urgent (18:07/20/2016 Panda Theodore) (Ack 18:27 Marc) (18:41 JSanders R.N.) Amylase Urgent (18:07/20/2016 Panda Theodore) (Ack 18:27 Marc) (18:41 JSanders R.N.) Lipase Urgent (18:07/20/2016 Panda Theodore) (Ack 18:27 Marc) (18:41 JSanders R.N.) Urine Urgent (18:07/20/2016 Panda Theodore) (Ack 18:27 Marc) (18:41 JSanders R.N.) MEDICATION ORDERS: IV FLUIDS: IV NS : initial bolus none -, then 1000 mL/hr for X1 (NOW) (18:07/20/2016 Panda Theodore) (18:42 JSanders R.N.) Toradol IV 30 mg (NOW) (18:07/20/2016 Panda Theodore) (18:44 JSanders R.N.) Zofran IV 4 mg (NOW) (18:07/20/2016 Panda Theodore) (18:46 JSanders R.N.) ORDER SHEET NOTES: [Electronically signed by Favian Quiroga Dr. (20:04 07/20/2016)] [Electronically signed by Sheriff Chato Fleming (20:07/20/2016)] [Electronically locked/signed by Sheriff Chato Fleming (20:09 07/20/2016)]
--- NOTE | 2016-07-20 20:09 | ED MAR SUMMARY ---
..... Medication Administration Record [facility] [address] [place] [address] Patient: DAVID HALL Visit ID: [id number] 20y, F Weight: 92.5 kg Height/Length: 62 in BMI: 37.3 ALLERGIES: No Known Drug Allergy Start 18:42 07/20/2016 Amina Pickett R.N., Stop 19:45 07/20/2016 Sheriff Fleming R.N. Medication Administered: IV NS (SALINE), Dose: IV Fluids over 1 hour(s), Rate: 1000 mL/hr, Dispensed: 1000 mL bag, Site: #1 right AC. Medication Ordered: IV NS : initial bolus none -, then 1000 mL/hr for X1 (NOW). Given 18:43 07/20/2016 Amina Pickett R.N. Medication Administered: TORADOL [IVP], Dose: 30 mg IVP over 1 minute(s), Site: #1 right AC. Medication Ordered: Toradol IV 30 mg (NOW). Given 18:44 07/20/2016 Amina Pickett R.N. Medication Administered: ZOFRAN [IVP] (ONDANSETRON HCL), Dose: 4 mg IVP over 1 minute(s), Site: #1 right AC. Medication Ordered: Zofran IV 4 mg (NOW).
--- NOTE | 2016-07-20 20:09 | ED DISCHARGE INSTRUCTIONS ---
Patient: DAVID HLAL General Instructions [facility] VisitID: [id number] [address] [place] [address] 20y, F Registration Date/Time: 07/20/2016 Biliary colic. No cholecystitis. INSTRUCTIONS Drink plenty of fluids. Avoid fatty, fried/greasy and spicy foods. Your Current Medications: CONTINUE TAKING THE FOLLOWING MEDICATIONS: None*. None*. Prescription Medications: Hydrocodone/APAP 5mg / 325mg: take 1 orally every 6 hours as needed for pain. Dispense twenty (20). No refill. Zofran (orally disintegrating tablets) 4 mg: take 1 orally every 6 hours as needed for nausea and vomiting. Dispense ten (10). No refill. Substitution is permissible. Follow-up: Screening today revealed the patient's blood pressure to be in the normal range. Follow-up with: Constantine Brink MD, General Surgeon, , [facility], [address] [place] [address] Follow up in about two days. Call for an appointment. ADDITIONAL INFORMATION Possible Gallstone With Biliary Colic [Presumed] Your doctor suspects that your abdominal pain is due to spasm of the gallbladder with gallstones. The gallbladder is a small sack under the liver which stores and releases bile. Bile is a fluid that aids in the digestion of fat. A gallstone may form in this sack and block the flow of bile fluid. This can cause mild to severe cramping pain in the mid or right upper abdomen with nausea and vomiting. To be more certain of the diagnosis, you may need to have an ultrasound, CT-scan or other special test. Home Care: Rest in bed and follow a clear liquid diet until feeling better. If pain or nausea medicine was given to help with your symptoms, take these as directed. Fat in your diet makes the gallbladder contract and may cause increased pain. Therefore, avoid fat in your diet over the next two days and follow a low-fat diet after that. If you are overweight, a low fat diet will help you lose weight. Follow Up if a test was already scheduled for you, keep this appointment. Be sure you know how to prepare yourself for the test. Usually, you will be asked not to eat or drink anything for at least 8 hours before the test. Schedule an appointment with your own doctor after your test is complete to discuss the findings. Get Prompt Medical Attention if any of the following occur: Pain gets worse or moves to the right lower abdomen Repeated vomiting Swelling of the abdomen Pain lasts over 6 hours Fever of 100.4 F (38 C) or higher, or as directed by your healthcare provider Weakness, dizziness or fainting Dark urine or light colored stools Yellow color of the skin or eyes Chest, arm, back, neck or jaw pain [place] Diet A bland diet is used for patients with an upset stomach. It consists of foods that are mild and easy to digest. It is better to eat small frequent meals rather than three large meals a day. BEVERAGES OK: Fruit juices, non-caffeinated teas and coffee, non-carbonated alicea AVOID: Carbonated beverage, caffeinated tea and coffee, all alcoholic beverages BREAD OK: Refined white, wheat or rye bread, val or soda crackers, Yessy toast, plain rolls, bagels AVOID: Whole-grain bread CEREAL OK: Refined cereals: cooked or ready to eat AVOID: Whole grain cereals and granola, or those containing bran, seeds or nuts DESSERTS OK: Peanut butter and all others except those to "avoid" AVOID: Chocolate, cocoa, coconut, popcorn, nuts, seeds, jam, marmalade FRUITS OK: Canned, cooked, frozen or fresh fruits without seeds or tough skin AVOID: Olives, skin and seeds of fruit MEATS OK: All fresh or preserved meat, fish and fowl AVOID: Any that are prepared with those spices to "avoid" CHEESE & EGGS OK: Eggs, cottage cheese, cream cheese, other cheeses AVOID: All cheeses made with those spices to "avoid" POTATOES & PASTA OK: Potato, rice, macaroni, noodles, spaghetti AVOID: None SOUPS OK: All soups without heavy seasoning AVOID: Soups made with those spices to "avoid" VEGETABLES OK: Canned, cooked, fresh or frozen mildly flavored vegetables without seeds, skins or coarse fiber AVOID: Vegetables prepared with those spices to "avoid"; skin and seeds of vegetables and those with coarse fiber SPICES OK: Salt, lemon and [place] juice, vinegar, all extracts, edd, cinnamon, thyme, mace, allspice, paprika AVOID: [place] powder, cloves, pepper, seed spices, garlic, gravy pickles, highly seasoned salad dressings Hydrocodone Bitartrate, Acetaminophen Oral tablet What is this medicine? ACETAMINOPHEN; HYDROCODONE (a set a YENIFER kenn fen; rachid droe KOE done) is a pain reliever. It is used to treat mild to moderate pain. How should I use this medicine? Take this medicine by mouth. Swallow it with a full glass of water. Follow the directions on the prescription label. If the medicine upsets your stomach, take the medicine with food or milk. Do not take more than you are told to take. Talk to your security and privacy consultant regarding the use of this medicine in children. This medicine is not approved for use in children. What side effects may I notice from receiving this medicine? Side effects that you should report to your doctor or health health care social worker as soon as possible: allergic reactions like skin rash, itching or hives, swelling of the face, lips, or tongue breathing problems confusion feeling faint or lightheaded, falls stomach pain yellowing of the eyes or skin Side effects that usually do not require medical attention (report to your doctor or health health care social worker if they continue or are bothersome): nausea, vomiting stomach upset What may interact with this medicine? alcohol antihistamines isoniazid medicines for depression, anxiety, or psychotic disturbances medicines for sleep muscle relaxants naltrexone narcotic medicines (opiates) for pain phenobarbital ritonavir tramadol What if I miss a dose? If you miss a dose, take it as soon as you can. If it is almost time for your next dose, take only that dose. Do not take double or extra doses. Where should I keep my medicine? Keep out of the reach of children. This medicine can be abused. Keep your medicine in a safe place to protect it from theft. Do not share this medicine with anyone. Selling or giving away this medicine is dangerous and against the law. Store at room temperature between 15 and 30 degrees C (59 and 86 degrees F). Protect from light. Keep container tightly closed. Throw away any unused medicine after the expiration date. Discard unused medicine and used packaging carefully. Pets and children can be harmed if they find used or lost packages. What should I tell my health care provider before I take this medicine? They need to know if you have any of these conditions: brain tumor Crohn's disease, inflammatory bowel disease, or ulcerative colitis drink more than 3 alcohol-containing drinks per day drug abuse or addiction head injury heart or circulation problems kidney disease or problems going to the bathroom liver disease lung disease, asthma, or breathing problems an unusual or allergic reaction to acetaminophen, hydrocodone, other opioid analgesics, other medicines, foods, dyes, or preservatives or trying to get breast-feeding What should I watch for while using this medicine? Tell your doctor or health health care social worker if your pain does not go away, if it gets worse, or if you have new or a different type of pain. You may develop tolerance to the medicine. Tolerance means that you will need a higher dose of the medicine for pain relief. Tolerance is normal and is expected if you take the medicine for a long time. Do not suddenly stop taking your medicine because you may develop a severe reaction. Your body becomes used to the medicine. This does NOT mean you are addicted. Addiction is a behavior related to getting and using a drug for a non-medical reason. If you have pain, you have a medical reason to take pain medicine. Your doctor will tell you how much medicine to take. If your doctor wants you to stop the medicine, the dose will be slowly lowered over time to avoid any side effects. You may get drowsy or dizzy when you first start taking the medicine or change doses. Do not drive, use machinery, or do anything that may be dangerous until you know how the medicine affects you. Stand or sit up slowly. There are different types of narcotic medicines (opiates) for pain. If you take more than one type at the same time, you may have more side effects. Give your health care provider a list of all medicines you use. Your doctor will tell you how much medicine to take. Do not take more medicine than directed. Call emergency for help if you have problems breathing. The medicine will cause constipation. Try to have a bowel movement at least every 2 to 3 days. If you do not have a bowel movement for 3 days, call your doctor or health health care social worker. Too much acetaminophen can be very dangerous. Do not take Tylenol (acetaminophen) or medicines that contain acetaminophen with this medicine. Many non-prescription medicines contain acetaminophen. Always read the labels carefully. Ondansetron Oral disintegrating tablet What is this medicine? ONDANSETRON (on MARIANA se jose) is used to treat nausea and vomiting caused by chemotherapy. It is also used to prevent or treat nausea and vomiting after surgery. How should I use this medicine? These tablets are made to dissolve in the mouth. Do not try to push the tablet through the foil backing. With dry hands, peel away the foil backing and gently remove the tablet. Place the tablet in the mouth and allow it to dissolve, then swallow. While you may take these tablets with water, it is not necessary to do so. Talk to your security and privacy consultant regarding the use of this medicine in children. Special care may be needed. What side effects may I notice from receiving this medicine? Side effects that you should report to your doctor or health health care social worker as soon as possible: allergic reactions like skin rash, itching or hives, swelling of the face, lips, or tongue breathing problems dizziness fast or irregular heartbeat feeling faint or lightheaded, falls fever and chills swelling of the hands and feet tightness in the chest Side effects that usually do not require medical attention (report to your doctor or health health care social worker if they continue or are bothersome): constipation or diarrhea headache What may interact with this medicine? Do not take this medicine with any of the following medications: -apomorphine -cisapride -dofetilide -dronedarone -pimozide -thioridazine -ziprasidone This medicine may also interact with the following medications: -carbamazepine -phenytoin -rifampicin -tramadol -other medicines that prolong the QT interval (cause an abnormal heart rhythm) What if I miss a dose? If you miss a dose, take it as soon as you can. If it is almost time for your next dose, take only that dose. Do not take double or extra doses. Where should I keep my medicine? Keep out of the reach of children. Store between 2 and 30 degrees C (36 and 86 degrees F). Throw away any unused medicine after the expiration date. What should I tell my health care provider before I take this medicine? They need to know if you have any of these conditions: heart disease history of irregular heartbeat liver disease low levels of magnesium or potassium in the blood an unusual or allergic reaction to ondansetron, granisetron, other medicines, foods, dyes, or preservatives or trying to get breast-feeding What should I watch for while using this medicine? Check with your doctor or health health care social worker as soon as you can if you have any sign of an allergic reaction. You have been given the following additional information: Biliary Colic With Gallstone (Presumed) Diet, [place] (Adult) Hydrocodone Bitartrate, Acetaminophen Oral tablet Ondansetron Oral disintegrating tablet (Electronically signed by Favian Quiroga Dr. 07/20/2016 20:04)
--- NOTE | 2016-07-20 20:09 | ED MAR SUMMARY ---
..... Medication Administration Record [facility] [address] [place] [place] [address] Patient: DAVID HALL Visit ID: [id number] 20y, F Weight: 92.5 kg Height/Length: 62 in BMI: 37.3 ALLERGIES: No Known Drug Allergy Start 18:42 07/20/2016 Amina Pickett R.N., Stop 19:45 07/20/2016 Sheriff Fleming R.N. Medication Administered: IV NS (SALINE), Dose: IV Fluids over 1 hour(s), Rate: 1000 mL/hr, Dispensed: 1000 mL bag, Site: #1 right AC. Medication Ordered: IV NS : initial bolus none -, then 1000 mL/hr for X1 (NOW). Given 18:43 07/20/2016 Amina Pickett R.N. Medication Administered: TORADOL [IVP], Dose: 30 mg IVP over 1 minute(s), Site: #1 right AC. Medication Ordered: Toradol IV 30 mg (NOW). Given 18:44 07/20/2016 Amina Pickett R.N. Medication Administered: ZOFRAN [IVP] (ONDANSETRON HCL), Dose: 4 mg IVP over 1 minute(s), Site: #1 right AC. Medication Ordered: Zofran IV 4 mg (NOW).
--- NOTE | 2016-07-20 20:09 | ED DISCHARGE INSTRUCTIONS ---
Patient: DAVID HALL General Instructions [facility] VisitID: [id number] [address] [place] [address] 20y, F Registration Date/Time: 07/20/2016 Biliary colic. No cholecystitis. INSTRUCTIONS Drink plenty of fluids. Avoid fatty, fried/greasy and spicy foods. Your Current Medications: CONTINUE TAKING THE FOLLOWING MEDICATIONS: None*. None*. Prescription Medications: Hydrocodone/APAP 5mg / 325mg: take 1 orally every 6 hours as needed for pain. Dispense twenty (20). No refill. Zofran (orally disintegrating tablets) 4 mg: take 1 orally every 6 hours as needed for nausea and vomiting. Dispense ten (10). No refill. Substitution is permissible. Follow-up: Screening today revealed the patient's blood pressure to be in the normal range. Follow-up with: Constantine Brink MD, General Surgeon, , [facility], [address] [place] [address] Follow up in about two days. Call for an appointment. ADDITIONAL INFORMATION Possible Gallstone With Biliary Colic [Presumed] Your doctor suspects that your abdominal pain is due to spasm of the gallbladder with gallstones. The gallbladder is a small sack under the liver which stores and releases bile. Bile is a fluid that aids in the digestion of fat. A gallstone may form in this sack and block the flow of bile fluid. This can cause mild to severe cramping pain in the mid or right upper abdomen with nausea and vomiting. To be more certain of the diagnosis, you may need to have an ultrasound, CT-scan or other special test. Home Care: Rest in bed and follow a clear liquid diet until feeling better. If pain or nausea medicine was given to help with your symptoms, take these as directed. Fat in your diet makes the gallbladder contract and may cause increased pain. Therefore, avoid fat in your diet over the next two days and follow a low-fat diet after that. If you are overweight, a low fat diet will help you lose weight. Follow Up if a test was already scheduled for you, keep this appointment. Be sure you know how to prepare yourself for the test. Usually, you will be asked not to eat or drink anything for at least 8 hours before the test. Schedule an appointment with your own doctor after your test is complete to discuss the findings. Get Prompt Medical Attention if any of the following occur: Pain gets worse or moves to the right lower abdomen Repeated vomiting Swelling of the abdomen Pain lasts over 6 hours Fever of 100.4 F (38 C) or higher, or as directed by your healthcare provider Weakness, dizziness or fainting Dark urine or light colored stools Yellow color of the skin or eyes Chest, arm, back, neck or jaw pain Dyer Diet A bland diet is used for patients with an upset stomach. It consists of foods that are mild and easy to digest. It is better to eat small frequent meals rather than three large meals a day. BEVERAGES OK: Fruit juices, non-caffeinated teas and coffee, non-carbonated alicea AVOID: Carbonated beverage, caffeinated tea and coffee, all alcoholic beverages BREAD OK: Refined white, wheat or rye bread, val or soda crackers, Yessy toast, plain rolls, bagels AVOID: Whole-grain bread CEREAL OK: Refined cereals: cooked or ready to eat AVOID: Whole grain cereals and granola, or those containing bran, seeds or nuts DESSERTS OK: Peanut butter and all others except those to "avoid" AVOID: Chocolate, cocoa, coconut, popcorn, nuts, seeds, jam, marmalade FRUITS OK: Canned, cooked, frozen or fresh fruits without seeds or tough skin AVOID: Olives, skin and seeds of fruit MEATS OK: All fresh or preserved meat, fish and fowl AVOID: Any that are prepared with those spices to "avoid" CHEESE & EGGS OK: Eggs, cottage cheese, cream cheese, other cheeses AVOID: All cheeses made with those spices to "avoid" POTATOES & PASTA OK: Potato, rice, macaroni, noodles, spaghetti AVOID: None SOUPS OK: All soups without heavy seasoning AVOID: Soups made with those spices to "avoid" VEGETABLES OK: Canned, cooked, fresh or frozen mildly flavored vegetables without seeds, skins or coarse fiber AVOID: Vegetables prepared with those spices to "avoid"; skin and seeds of vegetables and those with coarse fiber SPICES OK: Salt, lemon and cheesh-na juice, vinegar, all extracts, edd, cinnamon, thyme, mace, allspice, paprika AVOID: Anmoore powder, cloves, pepper, seed spices, garlic, gravy pickles, highly seasoned salad dressings Hydrocodone Bitartrate, Acetaminophen Oral tablet What is this medicine? ACETAMINOPHEN; HYDROCODONE (a set a YENIFER kenn fen; rachid droe KOE done) is a pain reliever. It is used to treat mild to moderate pain. How should I use this medicine? Take this medicine by mouth. Swallow it with a full glass of water. Follow the directions on the prescription label. If the medicine upsets your stomach, take the medicine with food or milk. Do not take more than you are told to take. Talk to your painting worker regarding the use of this medicine in children. This medicine is not approved for use in children. What side effects may I notice from receiving this medicine? Side effects that you should report to your doctor or health primary care nurse as soon as possible: allergic reactions like skin rash, itching or hives, swelling of the face, lips, or tongue breathing problems confusion feeling faint or lightheaded, falls stomach pain yellowing of the eyes or skin Side effects that usually do not require medical attention (report to your doctor or health primary care nurse if they continue or are bothersome): nausea, vomiting stomach upset What may interact with this medicine? alcohol antihistamines isoniazid medicines for depression, anxiety, or psychotic disturbances medicines for sleep muscle relaxants naltrexone narcotic medicines (opiates) for pain phenobarbital ritonavir tramadol What if I miss a dose? If you miss a dose, take it as soon as you can. If it is almost time for your next dose, take only that dose. Do not take double or extra doses. Where should I keep my medicine? Keep out of the reach of children. This medicine can be abused. Keep your medicine in a safe place to protect it from theft. Do not share this medicine with anyone. Selling or giving away this medicine is dangerous and against the law. Store at room temperature between 15 and 30 degrees C (59 and 86 degrees F). Protect from light. Keep container tightly closed. Throw away any unused medicine after the expiration date. Discard unused medicine and used packaging carefully. Pets and children can be harmed if they find used or lost packages. What should I tell my health care provider before I take this medicine? They need to know if you have any of these conditions: brain tumor Crohn's disease, inflammatory bowel disease, or ulcerative colitis drink more than 3 alcohol-containing drinks per day drug abuse or addiction head injury heart or circulation problems kidney disease or problems going to the bathroom liver disease lung disease, asthma, or breathing problems an unusual or allergic reaction to acetaminophen, hydrocodone, other opioid analgesics, other medicines, foods, dyes, or preservatives or trying to get breast-feeding What should I watch for while using this medicine? Tell your doctor or health primary care nurse if your pain does not go away, if it gets worse, or if you have new or a different type of pain. You may develop tolerance to the medicine. Tolerance means that you will need a higher dose of the medicine for pain relief. Tolerance is normal and is expected if you take the medicine for a long time. Do not suddenly stop taking your medicine because you may develop a severe reaction. Your body becomes used to the medicine. This does NOT mean you are addicted. Addiction is a behavior related to getting and using a drug for a non-medical reason. If you have pain, you have a medical reason to take pain medicine. Your doctor will tell you how much medicine to take. If your doctor wants you to stop the medicine, the dose will be slowly lowered over time to avoid any side effects. You may get drowsy or dizzy when you first start taking the medicine or change doses. Do not drive, use machinery, or do anything that may be dangerous until you know how the medicine affects you. Stand or sit up slowly. There are different types of narcotic medicines (opiates) for pain. If you take more than one type at the same time, you may have more side effects. Give your health care provider a list of all medicines you use. Your doctor will tell you how much medicine to take. Do not take more medicine than directed. Call emergency for help if you have problems breathing. The medicine will cause constipation. Try to have a bowel movement at least every 2 to 3 days. If you do not have a bowel movement for 3 days, call your doctor or health primary care nurse. Too much acetaminophen can be very dangerous. Do not take Tylenol (acetaminophen) or medicines that contain acetaminophen with this medicine. Many non-prescription medicines contain acetaminophen. Always read the labels carefully. Ondansetron Oral disintegrating tablet What is this medicine? ONDANSETRON (on MARIANA se jose) is used to treat nausea and vomiting caused by chemotherapy. It is also used to prevent or treat nausea and vomiting after surgery. How should I use this medicine? These tablets are made to dissolve in the mouth. Do not try to push the tablet through the foil backing. With dry hands, peel away the foil backing and gently remove the tablet. Place the tablet in the mouth and allow it to dissolve, then swallow. While you may take these tablets with water, it is not necessary to do so. Talk to your painting worker regarding the use of this medicine in children. Special care may be needed. What side effects may I notice from receiving this medicine? Side effects that you should report to your doctor or health primary care nurse as soon as possible: allergic reactions like skin rash, itching or hives, swelling of the face, lips, or tongue breathing problems dizziness fast or irregular heartbeat feeling faint or lightheaded, falls fever and chills swelling of the hands and feet tightness in the chest Side effects that usually do not require medical attention (report to your doctor or health primary care nurse if they continue or are bothersome): constipation or diarrhea headache What may interact with this medicine? Do not take this medicine with any of the following medications: -apomorphine -cisapride -dofetilide -dronedarone -pimozide -thioridazine -ziprasidone This medicine may also interact with the following medications: -carbamazepine -phenytoin -rifampicin -tramadol -other medicines that prolong the QT interval (cause an abnormal heart rhythm) What if I miss a dose? If you miss a dose, take it as soon as you can. If it is almost time for your next dose, take only that dose. Do not take double or extra doses. Where should I keep my medicine? Keep out of the reach of children. Store between 2 and 30 degrees C (36 and 86 degrees F). Throw away any unused medicine after the expiration date. What should I tell my health care provider before I take this medicine? They need to know if you have any of these conditions: heart disease history of irregular heartbeat liver disease low levels of magnesium or potassium in the blood an unusual or allergic reaction to ondansetron, granisetron, other medicines, foods, dyes, or preservatives or trying to get breast-feeding What should I watch for while using this medicine? Check with your doctor or health primary care nurse as soon as you can if you have any sign of an allergic reaction. You have been given the following additional information: Biliary Colic With Gallstone (Presumed) Diet, Dyer (Adult) Hydrocodone Bitartrate, Acetaminophen Oral tablet Ondansetron Oral disintegrating tablet (Electronically signed by Favian Quiroga Dr. 07/20/2016 20:04)
--- NOTE | 2016-07-20 20:09 | ED MED RECONCILIATION SUMMARY ---
Patient: DAVID HALL Medication Reconciliation Report [facility] VisitID: [id number] [address] [place] [address] 20y, F Registration Date/Time: 07/20/2016 Weight: 92.5 kg Height/Length: 62 in. BMI: 37.3 ALLERGIES: No Known Drug Allergy The patient's Home Medications are listed below: NONE. The source(s) of the original Home Medication information: Not obtained. The following Medications were given to the patient in the Emergency Department: IV NS IV Fluids bolus 0, then 1000 mL/hr, administered: 07/20/2016 6:42:00 PM Toradol [IVP] IVP 30 mg, administered: 07/20/2016 6:43:00 PM Zofran [IVP] IVP 4 mg, administered: 07/20/2016 6:44:00 PM The following Medications were prescribed to the patient: Hydrocodone/APAP 5mg / 325mg: take 1 orally every 6 hours as needed for pain. Dispense twenty (20). No refill. -- Favian Quiroga Dr. Zofran (orally disintegrating tablets) 4 mg: take 1 orally every 6 hours as needed for nausea and vomiting. Dispense ten (10). No refill. Substitution is permissible. -- Favian Quiroga Dr.
--- NOTE | 2016-07-20 20:09 | ED MED RECONCILIATION SUMMARY ---
Patient: DAVID HALL Medication Reconciliation Report [facility] VisitID: [id number] [address] [place] [address] 20y, F Registration Date/Time: 07/20/2016 Weight: 92.5 kg Height/Length: 62 in. BMI: 37.3 ALLERGIES: No Known Drug Allergy The patient's Home Medications are listed below: NONE. The source(s) of the original Home Medication information: Not obtained. The following Medications were given to the patient in the Emergency Department: IV NS IV Fluids bolus 0, then 1000 mL/hr, administered: 07/20/2016 6:42:00 PM Toradol [IVP] IVP 30 mg, administered: 07/20/2016 6:43:00 PM Zofran [IVP] IVP 4 mg, administered: 07/20/2016 6:44:00 PM The following Medications were prescribed to the patient: Hydrocodone/APAP 5mg / 325mg: take 1 orally every 6 hours as needed for pain. Dispense twenty (20). No refill. -- Favian Quiroga Dr. Zofran (orally disintegrating tablets) 4 mg: take 1 orally every 6 hours as needed for nausea and vomiting. Dispense ten (10). No refill. Substitution is permissible. -- Favian Quiroga Dr.
[2016-08-01] MEDS ORDERED: DEPO-PROVER150 MG/ML (15:46)
[2016-08-01] MEDS ORDERED: ADVIL200 M1 PO (15:47)
== END 2016-07-20 20:05 | disposition home or self-care (01) ==
LOC: ED SRH 17:54
DX: K80.50 Calculus of bile duct without cholangitis or cholecystitis without obstruction (principal)
CPT/HCPCS: 90004; 90100; 90469; 92235; 92530; 93070; 95059

== ENCOUNTER 2016-07-30 08:46 | Outpatient (CLI) | payer OTHER ==
--- NOTE | 2016-07-30 13:08 | DIAGNOSTIC IMAGING REPORT ---
PROCEDURE: NM HEPATOBILIARY IMAGING INDICATION: RUQ PAIN;NAUSEA;VOMITING;DIAREAH TECHNIQUE: 8 mCi of technetium-99m Choletec was injected intravenously and images were acquired over a one hour time interval. Subsequently, fatty milk meal was administered and gallbladder ejection fraction was calculated. COMPARISON: None. FINDINGS: Homogeneous radiotracer uptake throughout the liver. Gallbladder is first visualized at 9 minutes. Small bowel activity is seen at 19 minutes. Ejection fraction 28% at 20 minutes, 25% at 40 minutes and 30% at 60 minutes. IMPRESSION: 1. Gallbladder dyskinesia 2. Patent common bile and cystic ducts.
[2016-08-01] MEDS ORDERED: DEPO-PROVER150 MG/ML (15:46)
[2016-08-01] MEDS ORDERED: ADVIL200 M1 PO (15:47)
== END 2016-07-30 23:00 ==
LOC: NM SRH 08:46
DX: R10.11 Right upper quadrant pain (principal); K82.8 Other specified diseases of gallbladder; R11.10 Vomiting, unspecified; R19.7 Diarrhea, unspecified

== ENCOUNTER 2016-08-05 07:45 | Day surgery (SDC) | payer OTHER ==
[~2016-08-05] VITALS: Ht 157.5 cm; Wt 95.5 kg
[~2016-08-05 07:45] MED LIST: ADVIL200 M1 PO; DEPO-PROVER150 MG/ML
[2016-08-05] MEDS ORDERED: NORCO1 TA1 PO (11:35)
--- NOTE | 2016-08-05 11:36 | Provider's Discharge Care Plan ---
Problem, Goal, Plan Problem List 1. Chronic cholecystitis
--- NOTE | 2016-08-05 11:36 | Provider's Discharge Care Plan ---
Problem, Goal, Plan Problem List 1. Chronic cholecystitis
--- NOTE | 2016-08-05 12:14 | DIAGNOSTIC IMAGING REPORT ---
PROCEDURE: XR INTRAOPERATIVE LAP CAREN INDICATION: GALLBLADDER DYSKINESIA TECHNIQUE: Intraoperative fluoroscopy provided for Dr. Brink performing an intraoperative cholangiogram following cholecystectomy. Total fluoroscopy time 16 seconds. Cumulative dose 8.9 mGy. COMPARISON: None. FINDINGS: Two intraoperative fluoroscopic spot images of the right upper quadrant of the abdomen demonstrate cannulation of the cystic duct stump and opacification of the intrahepatic and extrahepatic biliary tree. On the first image, there is an ovoid nonobstructing filling defect in the proximal common bile duct which clears on a subsequent image, probably an air bubble. There are no persistent suspicious filling defects. There is normal passage of contrast into the duodenum. IMPRESSION: 1. Negative intraoperative cholangiogram.
--- NOTE | 2016-08-05 14:07 | OPERATIVE REPORT ---
DATE OF SURGERY: 08/05/2016 SURGEON: Constantine Brink MD VICE PRESIDENT SUPPLY CHAIN: Libby Linda III, MD PREOPERATIVE DIAGNOSIS: 1. Chronic cholecystitis POSTOPERATIVE DIAGNOSIS: 1. Chronic cholecystitis PROCEDURE PERFORMED: 1. Laparoscopic cholecystectomy and cholangiography ANESTHESIA: General. INDICATIONS: The patient is a 20-year-old woman with recurrent episodic food- induced right upper quadrant abdominal pain and an abnormal HIDA scan. SURGICAL TECHNIQUE: The patient was taken to the operating room, where a general anesthetic was administered and the patient was prepped and draped in the usual sterile fashion. IV antibiotics and sequential compression devices were in place. A local anesthetic of 0.5% Marcaine with epinephrine was used at each incision site. An intraumbilical incision was made and a Veress needle used to insufflate the abdominal cavity. A 10 mm cannula was passed and visualization was obtained. Three cannulae were placed in the usual locations. The gallbladder was elevated. The cystic duct was dissected out and a clip placed at the neck of the cystic duct. A fluoroscopic cholangiogram was carried out. Initially there were some air bubbles seen in the duct, which cleared with flushing, and the final cholangiogram showed a normal cholangiogram with free flow into the duodenum and no filling defects. The cystic duct was doubly clipped and divided and the gallbladder stripped from the gallbladder fossa using electrocautery. The gallbladder was pulled to the upper midline trocar site, where it was emptied of bile with a suction cannula and removed. The gallbladder bed was inspected and irrigated and found to be hemostatic, with no signs of bile leakage. Fluid was suctioned away. Additional Marcaine was instilled, gas was evacuated, and the midline skin sites closed with interrupted subcuticular 4-0 Vicryl suture. Steri-Strips and dressings were placed, and the patient left in good condition. No intraoperative complications were encountered.
[2016-08-05 14:37] VITALS: BP 123/82
== END 2016-08-05 17:45 | disposition home or self-care (01) ==
LOC: OR SRH 07:45 → SCU SRH 07:45 → OR SRH 09:30
PROVIDERS: Surgery
PROC: BF131ZZ Fluoroscopy of Gallbladder and Bile Ducts using Low Osmolar Contrast (ICD-10-PCS; principal; 2016-08-05 09:30)
PROC: 0FT44ZZ Resection of Gallbladder, Percutaneous Endoscopic Approach (ICD-10-PCS; principal; 2016-08-05 09:30)
DX: K81.1 Chronic cholecystitis (principal)
CPT/HCPCS: 29229; 29240; 50002; 60001; 70002; 80102; 80212; 80248; 81238; 82794; 82807; 83339; 83348; 83587; 83920; 83937; 83982; 84038; 93070

== ENCOUNTER 2016-08-09 08:58 | Outpatient (CLI) | payer OTHER ==
[~2016-08-09 08:58] MED LIST changes: +NORCO1 TA1 PO
== END 2016-08-09 23:00 ==
LOC: LAB SRH 08:58
DX: R10.9 Unspecified abdominal pain (principal); Z90.49 Acquired absence of other specified parts of digestive tract
CPT/HCPCS: 90047; 90074; 95059

== ENCOUNTER 2016-08-19 09:01 | Outpatient (CLI) | payer OTHER ==
--- NOTE | 2016-08-19 09:52 | DIAGNOSTIC IMAGING REPORT ---
PROCEDURE: US ABDOMEN ULTRASOUND-COMPLETE INDICATION: ABD PAIN; STATUS POST LAP CAREN TECHNIQUE: Mcneill scale and color Doppler sonographic images of the abdomen were obtained. COMPARISON: None. FINDINGS: Liver measures 21.5 cm with diffuse increased echogenicity. Normal spleen. Pancreas not well visualized. Cholecystectomy. Normal CBD measures 3.7 mm. Negative Winchester's sign. Aorta and IVC are patent. Normal hepatopetal flow. Normal kidneys. Right kidney measures 10.5 cm and left kidney 11.8 cm. IMPRESSION: 1. Hepatomegaly and steatosis versus intrinsic liver disease 2. Cholecystectomy
== END 2016-08-19 23:00 ==
LOC: US SRH 09:01
DX: R10.9 Unspecified abdominal pain (principal); Z90.49 Acquired absence of other specified parts of digestive tract

== ENCOUNTER 2016-08-22 15:20 | Emergency (ER) | payer OTHER ==
--- NOTE | 2016-08-22 17:53 | DIAGNOSTIC IMAGING REPORT ---
PROCEDURE: CT ABD/PELVIS WITH CONTRAST INDICATION: Abdominal pain. Elevated white blood count (13,700). Recent cholecystectomy (08/05/2016). History of appendectomy. TECHNIQUE: 125 ml of Isovue 300 were injected intravenously and axial images were obtained of the entire abdomen and pelvis with sagittal and coronal reformations. COMPARISON: Comparison is made to abdominal ultrasound (08/19/2016), intraoperative cholangiogram (08/05/2016). FINDINGS: ABDOMEN: Status post cholecystectomy (surgical clips). Normal postoperative appearance. Mild hepatomegaly with marked fatty infiltration of the liver. There is mild increased fluid in the small bowel and colon (nondilated). Spleen, pancreas, kidneys, aorta are normal. Surgical clips in right lower quadrant consistent with prior cholecystectomy. PELVIS: Retroflexed uterus (normal variant). Uterus and adnexal structures are otherwise normal. Small amount of free fluid the pelvis. IMPRESSION: 1. Status post cholecystectomy with normal postoperative appearance. 2. Status post appendectomy. 3. Mild hepatomegaly with marked fatty infiltration of the liver. 4. Mild increased fluid in the small bowel and colon. While this may be normal, consider enterocolitis. 5. Retroverted uterus (normal variant). 6. Small amount of free fluid in the pelvis. Consider occult ruptured ovarian cyst. 7.. Findings discussed with MANOHAR Castro. All CT scans at this facility use dose modulation, iterative reconstruction, and/or weight-based dosing when appropriate to reduce radiation dose to as low as reasonably achievable.
--- NOTE | 2016-08-22 18:02 | ED NURSING NOTES ---
Clinical Report - Nurses [facility] [address] [place] [address] 08/22/2016 15:22 Patient: DAVID HALL TRIAGE Triage time 1530. Acuity: LEVEL 3. Chief Complaint: ABDOMINAL PAIN, NAUSEA, VOMITING and DIARRHEA and (low midline abd pain with N/V/D also c/o back pain). --15:40 Jammie Yadav R.N. 15:30 08/22/16. BP: 126/91. HR: 127. RR: 24. O2 saturation: 100%. Temp: 97.7 F. Pain level now: 02/11. --15:40 Jammie Yadav R.N. Weight: 90.7 kg stated. Height/Length: 62 inches Per Patient. BMI: 36.6. Growth Chart Percentile: Weight: 97.4%. Height/Length: 18%. --15:38 Jammie Yadav R.N. Medications None. --15:39 Jammie Yadav R.N. Tylenol at 10:30am . --15:39 Jammie Yadav R.N. Allergies No Known Drug Allergy. --15:39 Jammie Yadav R.N. History Arrived by private vehicle. Historian: patient. Accompanied by friend. Primary physician (herson). This started today. She has had nausea, vomiting, diarrhea and abdominal pain. PAST MEDICAL HX: ( Pt states she had rectal bleeding with a colonoscopy 2 years ago at [facility]- stated she was "bleeding due to lactose intolerance"). SOCIAL HX: Never smoker. No alcohol use or drug use. --15:40 Jammie Yadav R.N. PAST MEDICAL HX: Last normal menstrual period- depo provera. SURGERY HX: Cholecystectomy. --16:26 Jammie Yadav R.N. PROBLEMS: Biliary Colic. Migraine Headache. Chronic Headache. Intrauterine . Vaginitis. Gastroenteritis. Polycystic Ovary Disease. --15:37 Jammie Yadav R.N. ADDITIONAL SURGERIES: Adenoidectomy. Appendectomy. Knee Surgery. Tonsillectomy. Trigger finger release. --15:37 Jammie Yadav R.N. Interventions ID band on patient. To treatment room. --15:40 Jammie Yadav R.N. PHYSICAL ASSESSMENT 15:30. To room via wheelchair. Patient gowned. GENERAL / NEURO / PSYCH: Alert. Oriented X 4. Appears in pain. RESPIRATORY: Respirations not labored. CVS: Capillary refill less than 2 seconds. GI / : The patient has had nausea and diarrhea. Abdominal tenderness. SKIN: Skin is warm and dry. --16:25 Jammie Yadav R.N. NURSING PROGRESS NOTES 15:50 08/22/2016 Site #1 started via IV in the right antecubital space with an 20g angiocath, with aseptic technique and good blood return; one attempt. Blood drawn: rainbow set. Labeled in the presence of the patient and sent to the lab. Saline lock flushed with 10 mL saline. --16:02 Jammie Yadav R.N. 15:52 08/22/2016 Started bag #1 1000 mL IV Fluids IV NS (Saline); at 1000 mL/hr over 1 hour(s) via site #1 via IV pump. --16:17 Jammie Yadav R.N. 16:05 08/22/2016 Zofran (Ondansetron HCl) IVP 8 mg given over 1 minute(s) via site #1. IV patency established. IV site checked: no pain, redness, or swelling. IV flushed thoroughly pre- and post-medication administration. IVP given by RN. --16:18 Jammie Yadav R.N. 16:06 08/22/2016 Reglan (Metoclopramide HCl) IVP 10 mg given over 2 minute(s) via site #1. IV patency established. IV site checked: no pain, redness, or swelling. IV flushed thoroughly pre- and post-medication administration. IVP given by RN. --16:19 Jammie Yadav R.N. 15:30. Patient gowned. Head of bed elevated. Reassurance given. Patient identifiers checked. Call light placed in reach. Side rails up. Bed placed in lowest position. Patient ready for evaluation- chart flagged. --16:20 Jammie Yadav R.N. 15:45. Patient ID band checked for patient name and birthdate: patient confirmed. Clean catch urine collected with return of orange-colored urine; sample sent to lab for urinalysis and culture. Specimen labeled in the presence of the patient. --16:21 Jammie Yadav R.N. 15:50 IV started and bloods sent to lab. Pt still rocking and moaning softly. ERPA in to examine pt. --16:22 Jammie Yadav R.N. 16:45 08/22/16. BP: 111/56. HR: 107. RR: 18. O2 saturation: 96% on room air. Temp: deferred. Pain level now: 5/10. Additional comments: resting quietly, waiting for lab. . --16:47 Jammie Yadav R.N. 17:05. Patient transported to NE by stretcher with tech. --17:09 Jammie Yadav R.N. 17:26 08/22/2016 Started 2 gm of Ceftriaxone IVPB in bag #1 50 mL; at 150 mL/hr via site #1 via IV pump. Allergies verified and confirmed 5 rights. IV patency established. IV site checked: no pain, redness, or swelling. IV flushed thoroughly pre- and post-medication administration (marvin for primary RN). --17:33 Tootie Harrison R.N. ( iv atbx up infusing on pump as ordered,). --17:34 Tootie Harrison R.N. 17:48 08/22/2016 Ceftriaxone IVPB Discontinued: STOPPED. Total amount infused: 50 mL. IV patency established. IV site checked: no pain, redness, or swelling. IV flushed thoroughly. --17:48 Tootie Harrison R.N. 17:48 08/22/16. Temp: 98.5 F (oral). --17:49 Tootie Harrison R.N. ( pt reports "I feel like I have a fever" temp checked). --17:49 Tootie Harrison R.N. Pulse oximeter and NIBP monitor placed on patient. ( pt placed on O2 sat monitor prior to giving phenergan). --17:50 Tootie Harrison R.N. 18:02 08/22/2016 PHENERGAN (Promethazine HCl) IVP 12.5 mg given. via site #1. Allergies verified and confirmed 5 rights. IV patency established. IV site checked: no pain, redness, or swelling. IV flushed thoroughly pre- and post-medication administration. IVP given by RN. --18:07 Tootie Harrison R.N. 18:20. ( Pt up to the bathroom for diarrhea, given mesh panties and mario pads). --23:24 Jammie Yadav R.N. 17:00 08/22/2016 IV Fluids IV NS Bag Change: bag #1 STOPPED. Total amount infused: 1000. STARTED bag #2 (1000 mL) at 1000 mL/hr via IV pump. --23:27 Jammie Yadav R.N. 18:30 08/22/2016 Site #1 removed upon discharge. Bandaid applied. --23:25 Jammie Yadav R.N. 18:30 08/22/2016 IV Fluids IV NS Discontinued: bag #2 STOPPED upon discharge. Total amount infused: 1000 mL. --23:28 Jammie Yadav R.N. DISPOSITION / DISCHARGE 1840. Condition at departure: stable. No learning barriers present. Discharge instructions provided and reviewed with the patient. Reviewed medication(s) (vicodin, keflex, zofran, reglan, immodium). Patient verbalized understanding. Written instructions provided in Angolan. The patient was discharged home and accompanied by family. She left the Emergency Department ambulatory and via private vehicle. Family member driving (sister). --23:24 Jammie Yadav R.N. 18:40 08/22/16. BP: 110/72. HR: 94. RR: 18. O2 saturation: 99%. Temp: deferred. Pain level now: 09/11. --23:24 Jammie Yadav R.N. Locked/Released at 08/22/2016 23:28 by Jammie Yadav R.N.
--- NOTE | 2016-08-22 18:02 | ED ORDER SUMMARY ---
..... Patient: DAVID HALL OrderSheet [facility] VisitID: [id number] [address] [place], [place] [id number] 21y, F Registration Date/Time: 08/22/2016 ORDER SHEET Weight: 90.7 kg (stated) Allergies: No Known Drug Allergy GENERAL ORDERS: CBC w Diff Urgent (15:58 08/22/2016 EKoroleva P.A.-C) (Ack 16:00 IJurca ER Tech1) (16:00 DDean R.N.) CMP Urgent (15:58 08/22/2016 EKoroleva P.A.-C) (Ack 16:00 IJurca ER Tech1) (16:00 DDean R.N.) UA-Culture if indicated Urgent (15:58 08/22/2016 EKoroleva P.A.-C) (Ack 16:00 IJurca ER Tech1) (16:01 DDean R.N.) Lipase Urgent (15:58 08/22/2016 EKoroleva P.A.-C) (Ack 16:00 IJurca ER Tech1) (16:00 DDean R.N.) Urine Urgent (15:58 08/22/2016 EKoroleva P.A.-C) (Ack 16:00 IJurca ER Tech1) (16:01 DDean R.N.) PT with INR Urgent (15:58 08/22/2016 EKoroleva P.A.-C) (Ack 16:00 IJurca ER Tech1) (16:01 DDean R.N.) PTT Urgent (15:58 08/22/2016 EKoroleva P.A.-C) (Ack 16:00 IJurca ER Tech1) (16:01 DDean R.N.) CT Abd/Pel w Cont (No) (N/A) (POST OP) Urgent (16:23 08/22/2016 EKoroleva P.A.-C) (Ack 16:25 IJurca ER Tech1) (18:10 MCampbell) MEDICATION ORDERS: Phenergan IV 12.5 mg (HIGH ALERT MEDICATION, NOW) (17:49 08/22/2016 EKoroleva P.A.-C) (18:07 KPage-Kuchan R.N.) IV FLUIDS: IV NS : initial bolus 1000 mL (1000 mL/hr), then 1000 mL/hr for X1 (NOW); Cruz (15:58 08/22/2016 EKoroleva P.A.-C) (Ack 16:01 DDean R.N.) (16:17 DDean R.N.) Zofran IV 8 mg (NOW) (15:59 08/22/2016 EKoroleva P.A.-C) (Ack 16:01 DDean R.N.) (16:18 DDean R.N.) Reglan IV 10 mg (NOW) (15:59 08/22/2016 EKoroleva P.A.-C) (Ack 16:01 DDean R.N.) (16:19 DDean R.N.) Cefotaxime IV 2 gm/100mL (NOW) (17:17 08/22/2016 EKoroleva P.A.-C) (Cancelled: Other17:20 EKoroleva P.A.-C) Ceftriaxone IV 2 gm/50mL (NOW) (17:20 08/22/2016 EKoroleva P.A.-C) (17:33 KPaadonay-Kuchan R.N.) ORDER SHEET NOTES: [Electronically signed by Aliyah Wing P.A.-C (18:36 08/22/2016)] [Electronically signed by Jammie Yadav R.N. (23:28 08/22/2016)] [Electronically locked/signed by Jammie Yadav R.N. (23:28 08/22/2016)]
--- NOTE | 2016-08-22 18:02 | ED CLINICAL REPORT ---
Clinical Report - Physicians/Mid Levels [facility] [address] [place] [address] 08/22/2016 15:22 [id number] Time Seen: 15:59 Aug 22 2016. Arrived- By private vehicle. Historian- patient. HISTORY OF PRESENT ILLNESS Chief Complaint: RECTAL BLEEDING. This started just prior to arrival. (Patient is 2 weeks status post cholecystectomy, presents today with left-sided abdominal pain. Reports nausea vomiting diarrhea. Patient denies any fevers. Denies a cough. Denies any shortness of breath or chest pain. Reports feeling well yesterday, she has resumed a regular diet since her surgery.). REVIEW OF SYSTEMS No dizziness, fainting episodes, abnormal bleeding, vaginal discharge or fever. No blurred vision or sore throat. She has had no rectal intercourse. All systems otherwise negative, except as recorded above. PAST HISTORY Problems: Biliary Colic. Sick Contact. Migraine Headache. Chronic Headache. Intrauterine . Vaginitis. . Gastroenteritis. Polycystic Ovary Disease. Additional Surgeries: Adenoidectomy. Appendectomy. Knee Surgery. Tonsillectomy. Trigger finger release. Medications: Tylenol at 10:30am . None. Allergies: No Known Drug Allergy. SOCIAL HISTORY Never smoker. No alcohol use. ADDITIONAL NOTES The nursing notes have been reviewed. PHYSICAL EXAM Vital Signs: 08/22/2016 15:30 BP: 126/91. HR: 127. RR: 24. O2 saturation: 100%. Temp: 97.7 F. Pain level now: 10/10. Appearance: Alert. Eyes: Eyes normal inspection. ENT: Ears normal. Nose normal. Neck: No lymphadenopathy. CVS: Tachycardia. Respiratory: No respiratory distress. Breath sounds normal. No accessory muscle use or decreased air movement. Abdomen: Nontender. Tenderness. Obese. Multiple scars present (c/d/i). Compatible with prior laparoscopic cholecystectomy. Rectal: Rectal exam nontender. Stool color normal. (trace positive/ brown stool, chaparoned exam with ED RN). Skin: Normal skin color. LABS, X-RAYS, AND EKG Abdominal CT: IMPRESSION: 1. Status post cholecystectomy with normal postoperative appearance. 2. Status post appendectomy. 3. Mild hepatomegaly with marked fatty infiltration of the liver. 4. Mild increased fluid in the small bowel and colon. While this may be normal, consider enterocolitis. 5. Retroverted uterus (normal variant). 6. Small amount of free fluid in the pelvis. Consider occult ruptured ovarian cyst. 7.. Findings discussed with MANOHAR Castro. All CT scans at this facility use dose modulation, iterative reconstruction, and/or weight-based dosing when appropriate to reduce radiation dose to as low as reasonably achievable. Electronically Final signed by:Sam Bills MD 08/22/2016 5:49:10 PM. Laboratory Tests: UA-Culture if indicated: (STEPHANIE: 08/22/2016 15:50) ( [facility] 08/22/2016 16:35) Final results Test Result Flag Units (Reference) URINE COLOR STRAW URINE APPEARANCE CLOUDY URINE GLUCOSE NEGATIVE (NEGATIVE) URINE BILIRUBIN NEGATIVE (NEGATIVE) URINE KETONE NEGATIVE (NEGATIVE) URINE SPECIFIC GRAVITY >= 1.030 (1.010-1.030) URINE PH 5.5 (5.0-8.0) URINE PROTEIN 2+ (NEGATIVE) URINE UROBILINOGEN 0.2 EU/dL (0.2-1.0) URINE NITRITE NEGATIVE (NEGATIVE) URINE BLOOD 3+ (NEGATIVE) URINE LEUK ESTERASE NEGATIVE (NEGATIVE) URINE RBC 25-50 rbc/hpf (0-1) URINE WBC 10-15 wbc/hpf (0-1) URINE EPITHELIAL CELLS 3-5 EPI/hpf (0-5) URINE BACTERIA MANY (4+) (NONE SEEN) URINE COMMENT CULTURE INDICATED MICROSCOPIC RAN ON UNCENTRIFUGED URINE DUE TO SMALL SAMPLE,THEREFORE MICROSCOPIC NUMBERS MAY BE INACCURATE.URINE CULTURES ARE SET-UP BASED ON THE FOLLOWING CRITERIA:POSITIVE NITRITEPOSITIVE LEUKOCYTE ESTERASEGREATER THAN 10 WHITE BLOOD CELLSMODERATE (2+) OR GREATER BACTERIA Urine: (STEPHANIE: 08/22/2016 15:50) ( [facility] 08/22/2016 16:14) Final results Test Result Flag Units (Reference) URINE NEGATIVE CBC w Diff: (STEPHANIE: 08/22/2016 15:50) ( [facility] 08/22/2016 16:18) Final results Test Result Flag Units (Reference) WHITE BLOOD COUNT 13.7 H K/uL (4.5-11.5) RED BLOOD COUNT 5.90 H M/uL (4.00-5.20) HEMOGLOBIN 16.3 H gm/dL (12.0-16.0) HEMATOCRIT 48.6 H % (36.0-46.0) MEAN CELL VOLUME 82 fL (80-100) MEAN CORPUSCULAR HGB 28 pg (26-34) MEAN CORPUSCULAR HGB CONC 34 g/dL (31-37) RED CELL DISTRIBUTION WIDTH 14.3 % (11.6-14.8) PLATELET COUNT 273 K/uL (150-400) NEUTROPHIL % 89.3 H % (50-75) LYMPH % 5.9 L % (25-40) MONO % 3.7 % (3-14) EOSINOPHIL % 0.9 % (0-4) BASOPHIL % 0.2 % (0-2) PT with INR: (STEPHANIE: 08/22/2016 15:50) ( [facility] 08/22/2016 16:26) Final results Test Result Flag Units (Reference) INR 0.9 (0.8-1.2) Low Intensity Therapy: INR 1.5-2.0 PT range 18.5-23.1Mod.Intensity Therapy: INR 2.0-3.0 PT range 23.1-31.5High Intensity Therapy: INR 2.5-3.5 PT range 27.4-35.5High Intensity Therapy 2: INR 3.0-4.0 PT range 31.5-39.3 APTT 25 SECONDS (24-34) CMP: (STEPHANIE: 08/22/2016 15:50) ( [facility] 08/22/2016 16:35) Final results Test Result Flag Units (Reference) GLUCOSE 111 H mg/dL (70-110) BUN 13 mg/dL (7-18) CREATININE 0.9 mg/dL (0.6-1.3) Estimated GFR >60 mL/min Estimated GFR- >60 mL/min Note: Persistent reduction over 3 months in eGFR<60 mL/min/1.73 m2 defines CKD. Patients with eGFR values>=60 mL/min/1.73 m2 may also have CKD if evidence ofpersistent proteinuria. Additional information may be foundat www.kidney.org. SODIUM 141 mmol/L (136-145) POTASSIUM 4.1 mmol/L (3.5-5.1) CHLORIDE 106 mmol/L (98-107) CARBON DIOXIDE 21 mmol/L (21-32) CALCIUM 9.7 mg/dL (8.5-10.1) TOTAL PROTEIN 9.0 H g/dL (6.4-8.2) ALBUMIN 4.3 g/dL (3.3-5.0) BILIRUBIN, TOTAL 0.8 mg/dL (0.0-1.0) ALKALINE PHOSPHATASE 93 U/L (46-116) AST (SGOT) 37 U/L (15-37) ALT (SGPT) 77 U/L (12-78) LIPASE 154 U/L (73-393) . PROGRESS AND PROCEDURES Course of Care: During the time in the ED, the following DDX were considered: acute surgical abdomen, hemodynamic or metabolic instability, dehydration, gastroenteritis-viral, food borne, or bacterial, food intolerance, irritable or inflammatory bowel, infection, sepsis. Patient with leukocytosis, dehydration, with negative slightly pos hemoccult in er, neg ct for any signs of perforation/ obstruction post surgery. 08/22/2016 16:45 BP: 111/56. HR: 107. RR: 18. O2 saturation: 96%. Pain level now: 5/10. Patient is stable. Symptoms better. Patient/family counseled. Disposition: Discharged. CLINICAL IMPRESSION Vomiting with dehydration. Diarrhea Cystitis. INSTRUCTIONS Do not work for two days. Drink plenty of fluids. Prescription Medications: Hydrocodone/APAP 5mg / 325mg: take 1 orally every 6 hours. Dispense ten (10). No refill. Zofran (orally disintegrating tablets) 4 mg: take 1 orally every 6 hours for 3 days as needed for nausea. Dispense ten (10). No refill. Substitution is permissible. Cephalexin 500 mg: take 1 capsule orally every 8 hours for 7 days. No refill. Reglan 10 mg tablets: take 1 orally every 8 hours for 3 days. Dispense ten (10). No refills. Substitution is permissible. Follow-up: Follow up with your doctor. (Electronically signed by Aliyah Wing P.A.-C 08/22/2016 18:36)
--- NOTE | 2016-08-22 18:02 | ED ORDER SUMMARY ---
..... Patient: DAVID HALL OrderSheet [facility] VisitID: [id number] [address] [place], [place] [id number] 21y, F Registration Date/Time: 08/22/2016 ORDER SHEET Weight: 90.7 kg (stated) Allergies: No Known Drug Allergy GENERAL ORDERS: CBC w Diff Urgent (15:58 08/22/2016 EKoroleva P.A.-C) (Ack 16:00 IJurca ER Tech1) (16:00 DDean R.N.) CMP Urgent (15:58 08/22/2016 EKoroleva P.A.-C) (Ack 16:00 IJurca ER Tech1) (16:00 DDean R.N.) UA-Culture if indicated Urgent (15:58 08/22/2016 EKoroleva P.A.-C) (Ack 16:00 IJurca ER Tech1) (16:01 DDean R.N.) Lipase Urgent (15:58 08/22/2016 EKoroleva P.A.-C) (Ack 16:00 IJurca ER Tech1) (16:00 DDean R.N.) Urine Urgent (15:58 08/22/2016 EKoroleva P.A.-C) (Ack 16:00 IJurca ER Tech1) (16:01 DDean R.N.) PT with INR Urgent (15:58 08/22/2016 EKoroleva P.A.-C) (Ack 16:00 IJurca ER Tech1) (16:01 DDean R.N.) PTT Urgent (15:58 08/22/2016 EKoroleva P.A.-C) (Ack 16:00 IJurca ER Tech1) (16:01 DDean R.N.) CT Abd/Pel w Cont (No) (N/A) (POST OP) Urgent (16:23 08/22/2016 EKoroleva P.A.-C) (Ack 16:25 IJurca ER Tech1) (18:10 MCampbell) MEDICATION ORDERS: Phenergan IV 12.5 mg (HIGH ALERT MEDICATION, NOW) (17:49 08/22/2016 EKoroleva P.A.-C) (18:07 KPage-Kuchan R.N.) IV FLUIDS: IV NS : initial bolus 1000 mL (1000 mL/hr), then 1000 mL/hr for X1 (NOW); Cruz (15:58 08/22/2016 EKoroleva P.A.-C) (Ack 16:01 DDean R.N.) (16:17 DDean R.N.) Zofran IV 8 mg (NOW) (15:59 08/22/2016 EKoroleva P.A.-C) (Ack 16:01 DDean R.N.) (16:18 DDean R.N.) Reglan IV 10 mg (NOW) (15:59 08/22/2016 EKoroleva P.A.-C) (Ack 16:01 DDean R.N.) (16:19 DDean R.N.) Cefotaxime IV 2 gm/100mL (NOW) (17:17 08/22/2016 EKoroleva P.A.-C) (Cancelled: Other17:20 EKoroleva P.A.-C) Ceftriaxone IV 2 gm/50mL (NOW) (17:20 08/22/2016 EKoroleva P.A.-C) (17:33 KPaadonay-Kuchan R.N.) ORDER SHEET NOTES: [Electronically signed by Aliyah Wing P.A.-C (18:36 08/22/2016)] [Electronically signed by Jammie Yadav R.N. (23:28 08/22/2016)] [Electronically locked/signed by Jammie Yadav R.N. (23:28 08/22/2016)]
--- NOTE | 2016-08-22 18:02 | ED CLINICAL REPORT ---
Clinical Report - Physicians/Mid Levels [facility] [address] [place] [address] 08/22/2016 15:22 [id number] Time Seen: 15:59 Aug 22 2016. Arrived- By private vehicle. Historian- patient. HISTORY OF PRESENT ILLNESS Chief Complaint: RECTAL BLEEDING. This started just prior to arrival. (Patient is 2 weeks status post cholecystectomy, presents today with left-sided abdominal pain. Reports nausea vomiting diarrhea. Patient denies any fevers. Denies a cough. Denies any shortness of breath or chest pain. Reports feeling well yesterday, she has resumed a regular diet since her surgery.). REVIEW OF SYSTEMS No dizziness, fainting episodes, abnormal bleeding, vaginal discharge or fever. No blurred vision or sore throat. She has had no rectal intercourse. All systems otherwise negative, except as recorded above. PAST HISTORY Problems: Biliary Colic. Sick Contact. Migraine Headache. Chronic Headache. Intrauterine . Vaginitis. . Gastroenteritis. Polycystic Ovary Disease. Additional Surgeries: Adenoidectomy. Appendectomy. Knee Surgery. Tonsillectomy. Trigger finger release. Medications: Tylenol at 10:30am . None. Allergies: No Known Drug Allergy. SOCIAL HISTORY Never smoker. No alcohol use. ADDITIONAL NOTES The nursing notes have been reviewed. PHYSICAL EXAM Vital Signs: 08/22/2016 15:30 BP: 126/91. HR: 127. RR: 24. O2 saturation: 100%. Temp: 97.7 F. Pain level now: 10/10. Appearance: Alert. Eyes: Eyes normal inspection. ENT: Ears normal. Nose normal. Neck: No lymphadenopathy. CVS: Tachycardia. Respiratory: No respiratory distress. Breath sounds normal. No accessory muscle use or decreased air movement. Abdomen: Nontender. Tenderness. Obese. Multiple scars present (c/d/i). Compatible with prior laparoscopic cholecystectomy. Rectal: Rectal exam nontender. Stool color normal. (trace positive/ brown stool, chaparoned exam with ED RN). Skin: Normal skin color. LABS, X-RAYS, AND EKG Abdominal CT: IMPRESSION: 1. Status post cholecystectomy with normal postoperative appearance. 2. Status post appendectomy. 3. Mild hepatomegaly with marked fatty infiltration of the liver. 4. Mild increased fluid in the small bowel and colon. While this may be normal, consider enterocolitis. 5. Retroverted uterus (normal variant). 6. Small amount of free fluid in the pelvis. Consider occult ruptured ovarian cyst. 7.. Findings discussed with MANOHAR Castro. All CT scans at this facility use dose modulation, iterative reconstruction, and/or weight-based dosing when appropriate to reduce radiation dose to as low as reasonably achievable. Electronically Final signed by:Sam Bills MD 08/22/2016 5:49:10 PM. Laboratory Tests: UA-Culture if indicated: (STEPHANIE: 08/22/2016 15:50) ( [facility] 08[facility] 16[facility]35) Final results Test Result Flag Units (Reference) URINE COLOR STRAW URINE APPEARANCE CLOUDY URINE GLUCOSE NEGATIVE (NEGATIVE) URINE BILIRUBIN NEGATIVE (NEGATIVE) URINE KETONE NEGATIVE (NEGATIVE) URINE SPECIFIC GRAVITY >= 1.030 (1.010-1.030) URINE PH 5.5 (5.0-8.0) URINE PROTEIN 2+ (NEGATIVE) URINE UROBILINOGEN 0.2 EU/dL (0.2-1.0) URINE NITRITE NEGATIVE (NEGATIVE) URINE BLOOD 3+ (NEGATIVE) URINE LEUK ESTERASE NEGATIVE (NEGATIVE) URINE RBC 25-50 rbc/hpf (0-1) URINE WBC 10-15 wbc/hpf (0-1) URINE EPITHELIAL CELLS 3-5 EPI/hpf (0-5) URINE BACTERIA MANY (4+) (NONE SEEN) URINE COMMENT CULTURE INDICATED MICROSCOPIC RAN ON UNCENTRIFUGED URINE DUE TO SMALL SAMPLE,THEREFORE MICROSCOPIC NUMBERS MAY BE INACCURATE.URINE CULTURES ARE SET-UP BASED ON THE FOLLOWING CRITERIA:POSITIVE NITRITEPOSITIVE LEUKOCYTE ESTERASEGREATER THAN 10 WHITE BLOOD CELLSMODERATE (2+) OR GREATER BACTERIA Urine: (STEPHANIE: 08/22/2016 15:50) ( [facility] 08/22/2016 16:14) Final results Test Result Flag Units (Reference) URINE NEGATIVE CBC w Diff: (STEPHANIE: 08/22/2016 15:50) ( [facility] 08/22/2016 16:18) Final results Test Result Flag Units (Reference) WHITE BLOOD COUNT 13.7 H K/uL (4.5-11.5) RED BLOOD COUNT 5.90 H M/uL (4.00-5.20) HEMOGLOBIN 16.3 H gm/dL (12.0-16.0) HEMATOCRIT 48.6 H % (36.0-46.0) MEAN CELL VOLUME 82 fL (80-100) MEAN CORPUSCULAR HGB 28 pg (26-34) MEAN CORPUSCULAR HGB CONC 34 g/dL (31-37) RED CELL DISTRIBUTION WIDTH 14.3 % (11.6-14.8) PLATELET COUNT 273 K/uL (150-400) NEUTROPHIL % 89.3 H % (50-75) LYMPH % 5.9 L % (25-40) MONO % 3.7 % (3-14) EOSINOPHIL % 0.9 % (0-4) BASOPHIL % 0.2 % (0-2) PT with INR: (STEPHANIE: 08/22/2016 15:50) ( [facility] 08/22/2016 16:26) Final results Test Result Flag Units (Reference) INR 0.9 (0.8-1.2) Low Intensity Therapy: INR 1.5-2.0 PT range 18.5-23.1Mod.Intensity Therapy: INR 2.0-3.0 PT range 23.1-31.5High Intensity Therapy: INR 2.5-3.5 PT range 27.4-35.5High Intensity Therapy 2: INR 3.0-4.0 PT range 31.5-39.3 APTT 25 SECONDS (24-34) CMP: (STEPHANIE: 08/22/2016 15:50) ( [facility] 08/22/2016 16:35) Final results Test Result Flag Units (Reference) GLUCOSE 111 H mg/dL (70-110) BUN 13 mg/dL (7-18) CREATININE 0.9 mg/dL (0.6-1.3) Estimated GFR >60 mL/min Estimated GFR- >60 mL/min Note: Persistent reduction over 3 months in eGFR<60 mL/min/1.73 m2 defines CKD. Patients with eGFR values>=60 mL/min/1.73 m2 may also have CKD if evidence ofpersistent proteinuria. Additional information may be foundat www.kidney.org. SODIUM 141 mmol/L (136-145) POTASSIUM 4.1 mmol/L (3.5-5.1) CHLORIDE 106 mmol/L (98-107) CARBON DIOXIDE 21 mmol/L (21-32) CALCIUM 9.7 mg/dL (8.5-10.1) TOTAL PROTEIN 9.0 H g/dL (6.4-8.2) ALBUMIN 4.3 g/dL (3.3-5.0) BILIRUBIN, TOTAL 0.8 mg/dL (0.0-1.0) ALKALINE PHOSPHATASE 93 U/L (46-116) AST (SGOT) 37 U/L (15-37) ALT (SGPT) 77 U/L (12-78) LIPASE 154 U/L (73-393) . PROGRESS AND PROCEDURES Course of Care: During the time in the ED, the following DDX were considered: acute surgical abdomen, hemodynamic or metabolic instability, dehydration, gastroenteritis-viral, food borne, or bacterial, food intolerance, irritable or inflammatory bowel, infection, sepsis. Patient with leukocytosis, dehydration, with negative slightly pos hemoccult in er, neg ct for any signs of perforation/ obstruction post surgery. 08/22/2016 16:45 BP: 111/56. HR: 107. RR: 18. O2 saturation: 96%. Pain level now: 5/10. Patient is stable. Symptoms better. Patient/family counseled. Disposition: Discharged. CLINICAL IMPRESSION Vomiting with dehydration. Diarrhea Cystitis. INSTRUCTIONS Do not work for two days. Drink plenty of fluids. Prescription Medications: Hydrocodone/APAP 5mg / 325mg: take 1 orally every 6 hours. Dispense ten (10). No refill. Zofran (orally disintegrating tablets) 4 mg: take 1 orally every 6 hours for 3 days as needed for nausea. Dispense ten (10). No refill. Substitution is permissible. Cephalexin 500 mg: take 1 capsule orally every 8 hours for 7 days. No refill. Reglan 10 mg tablets: take 1 orally every 8 hours for 3 days. Dispense ten (10). No refills. Substitution is permissible. Follow-up: Follow up with your doctor. (Electronically signed by Aliyah Wing P.A.-C 08/22/2016 18:36)
--- NOTE | 2016-08-22 18:02 | ED NURSING NOTES ---
Clinical Report - Nurses [facility] [address] [place] [address] 08/22/2016 15:22 Patient: DAVID HALL TRIAGE Triage time 1530. Acuity: LEVEL 3. Chief Complaint: ABDOMINAL PAIN, NAUSEA, VOMITING and DIARRHEA and (low midline abd pain with N/V/D also c/o back pain). --15:40 Jammie Yadav R.N. 15:30 08/22/16. BP: 126/91. HR: 127. RR: 24. O2 saturation: 100%. Temp: 97.7 F. Pain level now: 02/11. --15:40 Jammie Yadav R.N. Weight: 90.7 kg stated. Height/Length: 62 inches Per Patient. BMI: 36.6. Growth Chart Percentile: Weight: 97.4%. Height/Length: 18%. --15:38 Jammie Yadav R.N. Medications None. --15:39 Jammie Yadav R.N. Tylenol at 10:30am . --15:39 Jammie Yadav R.N. Allergies No Known Drug Allergy. --15:39 Jammie Yadav R.N. History Arrived by private vehicle. Historian: patient. Accompanied by friend. Primary physician (herson). This started today. She has had nausea, vomiting, diarrhea and abdominal pain. PAST MEDICAL HX: ( Pt states she had rectal bleeding with a colonoscopy 2 years ago at [facility]- stated she was "bleeding due to lactose intolerance"). SOCIAL HX: Never smoker. No alcohol use or drug use. --15:40 Jammie Yadav R.N. PAST MEDICAL HX: Last normal menstrual period- depo provera. SURGERY HX: Cholecystectomy. --16:26 Jammie Yadav R.N. PROBLEMS: Biliary Colic. Migraine Headache. Chronic Headache. Intrauterine . Vaginitis. Gastroenteritis. Polycystic Ovary Disease. --15:37 Jammie Yadav R.N. ADDITIONAL SURGERIES: Adenoidectomy. Appendectomy. Knee Surgery. Tonsillectomy. Trigger finger release. --15:37 Jammie Yadav R.N. Interventions ID band on patient. To treatment room. --15:40 Jammie Yadav R.N. PHYSICAL ASSESSMENT 15:30. To room via wheelchair. Patient gowned. GENERAL / NEURO / PSYCH: Alert. Oriented X 4. Appears in pain. RESPIRATORY: Respirations not labored. CVS: Capillary refill less than 2 seconds. GI / : The patient has had nausea and diarrhea. Abdominal tenderness. SKIN: Skin is warm and dry. --16:25 Jammie Yadav R.N. NURSING PROGRESS NOTES 15:50 08/22/2016 Site #1 started via IV in the right antecubital space with an 20g angiocath, with aseptic technique and good blood return; one attempt. Blood drawn: rainbow set. Labeled in the presence of the patient and sent to the lab. Saline lock flushed with 10 mL saline. --16:02 Jammie Yadav R.N. 15:52 08/22/2016 Started bag #1 1000 mL IV Fluids IV NS (Saline); at 1000 mL/hr over 1 hour(s) via site #1 via IV pump. --16:17 Jammie Yadav R.N. 16:05 08/22/2016 Zofran (Ondansetron HCl) IVP 8 mg given over 1 minute(s) via site #1. IV patency established. IV site checked: no pain, redness, or swelling. IV flushed thoroughly pre- and post-medication administration. IVP given by RN. --16:18 Jammie Yadav R.N. 16:06 08/22/2016 Reglan (Metoclopramide HCl) IVP 10 mg given over 2 minute(s) via site #1. IV patency established. IV site checked: no pain, redness, or swelling. IV flushed thoroughly pre- and post-medication administration. IVP given by RN. --16:19 Jammie Yadav R.N. 15:30. Patient gowned. Head of bed elevated. Reassurance given. Patient identifiers checked. Call light placed in reach. Side rails up. Bed placed in lowest position. Patient ready for evaluation- chart flagged. --16:20 Jammie Yadav R.N. 15:45. Patient ID band checked for patient name and birthdate: patient confirmed. Clean catch urine collected with return of orange-colored urine; sample sent to lab for urinalysis and culture. Specimen labeled in the presence of the patient. --16:21 Jammie Yadav R.N. 15:50 IV started and bloods sent to lab. Pt still rocking and moaning softly. ERPA in to examine pt. --16:22 Jammie Yadav R.N. 16:45 08/22/16. BP: 111/56. HR: 107. RR: 18. O2 saturation: 96% on room air. Temp: deferred. Pain level now: 5/10. Additional comments: resting quietly, waiting for lab. . --16:47 Jammie Yadav R.N. 17:05. Patient transported to [place] by stretcher with tech. --17:09 Jammie Yadav R.N. 17:26 08/22/2016 Started 2 gm of Ceftriaxone IVPB in bag #1 50 mL; at 150 mL/hr via site #1 via IV pump. Allergies verified and confirmed 5 rights. IV patency established. IV site checked: no pain, redness, or swelling. IV flushed thoroughly pre- and post-medication administration (marvin for primary RN). --17:33 Tootie Harrison R.N. ( iv atbx up infusing on pump as ordered,). --17:34 Tootie Harrison R.N. 17:48 08/22/2016 Ceftriaxone IVPB Discontinued: STOPPED. Total amount infused: 50 mL. IV patency established. IV site checked: no pain, redness, or swelling. IV flushed thoroughly. --17:48 Tootie Harrison R.N. 17:48 08/22/16. Temp: 98.5 F (oral). --17:49 Tootie Harrison R.N. ( pt reports "I feel like I have a fever" temp checked). --17:49 Tootie Harrison R.N. Pulse oximeter and NIBP monitor placed on patient. ( pt placed on O2 sat monitor prior to giving phenergan). --17:50 Tootie Harrison R.N. 18:02 08/22/2016 PHENERGAN (Promethazine HCl) IVP 12.5 mg given. via site #1. Allergies verified and confirmed 5 rights. IV patency established. IV site checked: no pain, redness, or swelling. IV flushed thoroughly pre- and post-medication administration. IVP given by RN. --18:07 Tootie Harrison R.N. 18:20. ( Pt up to the bathroom for diarrhea, given mesh panties and mario pads). --23:24 Jammie Yadav R.N. 17:00 08/22/2016 IV Fluids IV NS Bag Change: bag #1 STOPPED. Total amount infused: 1000. STARTED bag #2 (1000 mL) at 1000 mL/hr via IV pump. --23:27 Jammie Yadav R.N. 18:30 08/22/2016 Site #1 removed upon discharge. Bandaid applied. --23:25 Jammie Yadav R.N. 18:30 08/22/2016 IV Fluids IV NS Discontinued: bag #2 STOPPED upon discharge. Total amount infused: 1000 mL. --23:28 Jammie Yadav R.N. DISPOSITION / DISCHARGE 1840. Condition at departure: stable. No learning barriers present. Discharge instructions provided and reviewed with the patient. Reviewed medication(s) (vicodin, keflex, zofran, reglan, immodium). Patient verbalized understanding. Written instructions provided in [place]. The patient was discharged home and accompanied by family. She left the Emergency Department ambulatory and via private vehicle. Family member driving (sister). --23:24 Jammie Yadav R.N. 18:40 08/22/16. BP: 110/72. HR: 94. RR: 18. O2 saturation: 99%. Temp: deferred. Pain level now: 09/11. --23:24 Jammie Yadav R.N. Locked/Released at 08/22/2016 23:28 by Jammie Yadav R.N.
--- NOTE | 2016-08-22 23:29 | ED MAR SUMMARY ---
..... Medication Administration [facility] [address], [place] [address] Patient: DAVID HALL Visit ID: [id number] 21y, F Weight: 90.7 kg Height/Length: 62 in BMI: 36.6 ALLERGIES: No Known Drug Allergy Start 15:52 08/22/2016 Jammie Yadav R.N., Stop 18:30 08/22/2016 Jammie Yadav R.N. Medication Administered: IV NS (SALINE), Dose: IV Fluids over 1 hour(s), Rate: 1000 mL/hr, Dispensed: 1000 mL bag, Site: #1 right AC. Medication Ordered: IV NS : initial bolus 1000 mL (1000 mL/hr), then 1000 mL/hr for X1 (NOW); Cruz. Given 16:05 08/22/2016 Jammie Yadav R.N. Medication Administered: ZOFRAN [IVP] (ONDANSETRON HCL), Dose: 8 mg IVP over 1 minute(s), Site: #1 right AC. Medication Ordered: Zofran IV 8 mg (NOW). Given 16:06 08/22/2016 Jammie Yadav R.N. Medication Administered: REGLAN [IVP] (METOCLOPRAMIDE HCL), Dose: 10 mg IVP over 2 minute(s), Site: #1 right AC. Medication Ordered: Reglan IV 10 mg (NOW). Start 17:26 08/22/2016 Tootie Harrison R.N., Stop 17:48 08/22/2016 Tootie Harrison R.N. Medication Administered: CEFTRIAXONE [IVPB], Dose: 2 gm IVPB, Rate: 150 mL/hr, Dispensed: 50 mL bag, Site: #1 right AC. Medication Ordered: Ceftriaxone IV 2 gm/50mL (NOW). Given 18:02 08/22/2016 Tootie Harrison R.N. Medication Administered: PHENERGAN [IVP] (PROMETHAZINE HCL), Dose: 12.5 mg IVP, Site: #1 right AC. Medication Ordered: Phenergan IV 12.5 mg (HIGH ALERT MEDICATION, NOW).
--- NOTE | 2016-08-22 23:29 | ED MED RECONCILIATION SUMMARY ---
Patient: DAVID HALL Medication Reconciliation Report [facility] VisitID: [id number] [address] [place] [address] 21y, F Registration Date/Time: 08/22/2016 Weight: 90.7 kg Height/Length: 62 in. BMI: 36.6 ALLERGIES: No Known Drug Allergy The patient's Home Medications are listed below: THE FOLLOWING MEDICATIONS NEED TO BE RECONCILED: Tylenol at 10:30am The source(s) of the original Home Medication information: Not obtained. The following Medications were given to the patient in the Emergency Department: IV NS IV Fluids bolus 0, then 1000 mL/hr, administered: 08/22/2016 3:52:00 PM Zofran [IVP] IVP 8 mg, administered: 08/22/2016 4:05:00 PM Reglan [IVP] IVP 10 mg, administered: 08/22/2016 4:06:00 PM Ceftriaxone [IVPB] IVPB bolus 0, then 2 gm 150 mL/hr, administered: 08/22/2016 5:26:00 PM PHENERGAN [IVP] IVP 12.5 mg, administered: 08/22/2016 6:02:00 PM The following Medications were prescribed to the patient: Hydrocodone/APAP 5mg / 325mg: take 1 orally every 6 hours. Dispense ten (10). No refill. -- Aliyah Wing, P.A.-C Zofran (orally disintegrating tablets) 4 mg: take 1 orally every 6 hours for 3 days as needed for nausea. Dispense ten (10). No refill. Substitution is permissible. -- Aliyah Wing, P.A.-C Cephalexin 500 mg: take 1 capsule orally every 8 hours for 7 days. No refill. -- Sherrioleva, Aliyah, P.A.-C Reglan 10 mg tablets: take 1 orally every 8 hours for 3 days. Dispense ten (10). No refills. Substitution is permissible. -- SherrioleSantiago grantAliyah, P.A.-C
--- NOTE | 2016-08-22 23:29 | ED MAR SUMMARY ---
..... Medication Administration Record [facility] [address], [place] [address] Patient: DAVID HALL Visit ID: [id number] 21y, F Weight: 90.7 kg Height/Length: 62 in BMI: 36.6 ALLERGIES: No Known Drug Allergy Start 15:52 08/22/2016 Jammie Yadav R.N., Stop 18:30 08/22/2016 Jammie Yadav R.N. Medication Administered: IV NS (SALINE), Dose: IV Fluids over 1 hour(s), Rate: 1000 mL/hr, Dispensed: 1000 mL bag, Site: #1 right AC. Medication Ordered: IV NS : initial bolus 1000 mL (1000 mL/hr), then 1000 mL/hr for X1 (NOW); Cruz. Given 16:05 08/22/2016 Jammie Yadav R.N. Medication Administered: ZOFRAN [IVP] (ONDANSETRON HCL), Dose: 8 mg IVP over 1 minute(s), Site: #1 right AC. Medication Ordered: Zofran IV 8 mg (NOW). Given 16:06 08/22/2016 Jammie Yadav R.N. Medication Administered: REGLAN [IVP] (METOCLOPRAMIDE HCL), Dose: 10 mg IVP over 2 minute(s), Site: #1 right AC. Medication Ordered: Reglan IV 10 mg (NOW). Start 17:26 08/22/2016 Tootie Harrison R.N., Stop 17:48 08/22/2016 Tootie Harrison R.N. Medication Administered: CEFTRIAXONE [IVPB], Dose: 2 gm IVPB, Rate: 150 mL/hr, Dispensed: 50 mL bag, Site: #1 right AC. Medication Ordered: Ceftriaxone IV 2 gm/50mL (NOW). Given 18:02 08/22/2016 Tootie Harrison R.N. Medication Administered: PHENERGAN [IVP] (PROMETHAZINE HCL), Dose: 12.5 mg IVP, Site: #1 right AC. Medication Ordered: Phenergan IV 12.5 mg (HIGH ALERT MEDICATION, NOW).
--- NOTE | 2016-08-22 23:29 | ED MED RECONCILIATION SUMMARY ---
Patient: DAVID HALL Medication Reconciliation Report [facility] VisitID: [id number] [address] [place] [address] 21y, F Registration Date/Time: 08/22/2016 Weight: 90.7 kg Height/Length: 62 in. BMI: 36.6 ALLERGIES: No Known Drug Allergy The patient's Home Medications are listed below: THE FOLLOWING MEDICATIONS NEED TO BE RECONCILED: Tylenol at 10:30am The source(s) of the original Home Medication information: Not obtained. The following Medications were given to the patient in the Emergency Department: IV NS IV Fluids bolus 0, then 1000 mL/hr, administered: 08/22/2016 3:52:00 PM Zofran [IVP] IVP 8 mg, administered: 08/22/2016 4:05:00 PM Reglan [IVP] IVP 10 mg, administered: 08/22/2016 4:06:00 PM Ceftriaxone [IVPB] IVPB bolus 0, then 2 gm 150 mL/hr, administered: 08/22/2016 5:26:00 PM PHENERGAN [IVP] IVP 12.5 mg, administered: 08/22/2016 6:02:00 PM The following Medications were prescribed to the patient: Hydrocodone/APAP 5mg / 325mg: take 1 orally every 6 hours. Dispense ten (10). No refill. -- Aliyah Wing, P.A.-C Zofran (orally disintegrating tablets) 4 mg: take 1 orally every 6 hours for 3 days as needed for nausea. Dispense ten (10). No refill. Substitution is permissible. -- Aliyah Wing, P.A.-C Cephalexin 500 mg: take 1 capsule orally every 8 hours for 7 days. No refill. -- Sherrioleva, Aliyah, P.A.-C Reglan 10 mg tablets: take 1 orally every 8 hours for 3 days. Dispense ten (10). No refills. Substitution is permissible. -- SherrioleSantiago grantAliyah, P.A.-C
--- NOTE | 2016-08-22 23:29 | ED DISCHARGE INSTRUCTIONS ---
Patient: DAVID HALL General Instructions [facility] VisitID: [id number] [place] [address] 21y, F Registration Date/Time: 08/22/2016 Vomiting with dehydration. Diarrhea Cystitis. INSTRUCTIONS Do not work for two days. Drink plenty of fluids. Prescription Medications: Hydrocodone/APAP 5mg / 325mg: take 1 orally every 6 hours. Dispense ten (10). No refill. Zofran (orally disintegrating tablets) 4 mg: take 1 orally every 6 hours for 3 days as needed for nausea. Dispense ten (10). No refill. Substitution is permissible. Cephalexin 500 mg: take 1 capsule orally every 8 hours for 7 days. No refill. Reglan 10 mg tablets: take 1 orally every 8 hours for 3 days. Dispense ten (10). No refills. Substitution is permissible. Follow-up: Follow up with your doctor. ADDITIONAL INFORMATION Vomiting [6Yr-Adult] Vomiting is a common symptom that may be due to different causes. These include gastroenteritis ("stomach flu"), food poisoning and gastritis. There are other more serious causes of vomiting which may be hard to diagnose early in the illness. Therefore, it is important to watch for the warning signs listed below. The main danger from repeated vomiting is dehydration. This is due to excess loss of water and minerals from the body. When this occurs, body fluids must be replaced. Home Care: If symptoms are severe, rest at home for the next 24 hours. You may use acetaminophen (Tylenol) or ibuprofen (Motrin, Advil) to control fever, unless another medicine was prescribed. [NOTE : If you have chronic liver or kidney disease or ever had a stomach ulcer or GI bleeding, talk with your doctor before using these medicines.] (Aspirin should never be used in anyone under 18 years of age who is ill with a fever. It may cause severe liver damage.) Avoid tobacco and alcohol use, which may worsen your symptoms. If medicines for vomiting were prescribed, take as directed. Once vomiting stops, then follow these guidelines: During The First 12-24 Hours follow the diet below: FRUIT JUICES: Apple, grape juice, clear fruit drinks, and electrolyte replacement drinks. BEVERAGES: Soft drinks without caffeine; mineral water (plain or flavored), decaffeinated tea and coffee. SOUPS: Clear broth, consomm and bouillon DESSERTS: Plain gelatin, popsicles and fruit juice bars. As you feel better, you may add 6-8 ounces of yogurt per day. During The Next 24 Hours you may add the following to the above: Hot cereal, plain toast, bread, rolls, crackers Plain noodles, rice, mashed potatoes, chicken noodle or rice soup Unsweetened canned fruit (avoid pineapple), bananas Limit caffeine and chocolate. No spices or seasonings except salt. During The Next 24 Hours Gradually resume a normal diet, as you feel better and your symptoms lessen. Follow Up with your doctor as advised if you are not improving over the next 2-3 days. Get Prompt Medical Attention if any of the following occur: Constant right-sided lower abdominal pain or increasing general abdominal pain Continued vomiting (unable to keep liquids down) for 24 hours Frequent diarrhea (more than 5 times a day); blood (red or black color) or mucus in diarrhea Reduced urine output or extreme thirst Weakness, dizziness or fainting Unusually drowsy or confused Fever of 100.4F (38C) oral or higher, not better with fever medication Yellow color of the eyes or skin Diarrhea, Uncertain Cause (Adult, Report Pending) Diarrhea has several possible causes. Commonstomach fluis caused by a virus. Food poisoning, bacteria or parasites are other causes for diarrhea. Only diarrhea caused by bacteria or parasites requires treatment with an antibiotic. Diarrhea from a virus or food poisoning improves with simple home treatment. A stool sample is needed to make the diagnosis of an infection with bacteria or parasites. Up to three stool specimens may be required to diagnose This may take up to two days to get the result. It may be necessary to wait until the stool test is complete to make the diagnosis and select the best antibiotic to prescribe. Home Care: If symptoms are severe, rest at home for the next 24 hours or until you are feeling better. You may use acetaminophen (Tylenol) or ibuprofen (Motrin, Advil) to control fever, unless another medicine was prescribed. [NOTE: If you have chronic liver or kidney disease or ever had a stomach ulcer or GI bleeding, talk with your doctor before using these medicines.] (Aspirin should never be used in anyone under 18 years of age who is ill with a fever. It may cause severe liver damage.) Avoid tobacco, caffeine and alcohol, which may worsen your symptoms. If anti-diarrhea medicine was prescribed, take this only as directed. Sometimes anti-diarrhea medicine can make your condition worse if the cause is an infectious diarrhea. Therefore, anti-diarrhea medicine should not be taken for this condition unless advised by your doctor. During The First 12-24 Hours follow the diet below: BEVERAGES: Sport drinks like Gatorade, soft drinks without caffeine; patrice ingrid, mineral water (plain or flavored), decaffeinated tea and coffee. SOUPS: Clear broth, consomm and bouillon DESSERTS: Plain gelatin (Jell-O), popsicles and fruit juice bars. During The Next 24 Hours you may add the following to the above: Hot cereal, plain toast, bread, rolls, crackers Plain noodles, rice, mashed potatoes, chicken noodle or rice soup Unsweetened canned fruit (avoid pineapple), bananas Limit fat intake to less than 15 grams per day by avoiding margarine, butter, oils, mayonnaise, sauces, gravies, fried foods, peanut butter, meat, poultry and fish. Limit fiber; avoid raw or cooked vegetables, fresh fruits (except bananas) and bran cereals. Limit caffeine and chocolate. No spices or seasonings except salt. During The Next 24 Hours Gradually resume a normal diet, as you feel better and your symptoms lessen. Follow Up with your doctor or as advised if you are not improving over the next two days. If you were asked to bring a specimen from home, bring the sample on the day of collection. You may call in 2 days (or as directed) for the results. Get Prompt Medical Attention if any of the following occur: Increasing abdominal pain or constant lower right abdominal pain Continued vomiting (unable to keep liquids down) Frequent diarrhea (more than 5 times a day) Blood in vomit or stool (black or red color) Reduced oral intake Dark urine, reduced urine output Weakness, dizziness, fainting Drowsiness, confusion, stiff neck or seizure Fever of 100.4F (38C) oral or higher, not better with fever medication New rash Bladder Infection,Female (Adult) A bladder infection ("cystitis" or "UTI") usually causes a constant urge to urinate and a burning when passing urine. Urine may be cloudy, smelly or dark. There may be pain in the lower abdomen. A bladder infection occurs when bacteria from the vaginal area enter the bladder opening (urethra). This can occur from sexual intercourse, wearing tight clothing, dehydration and other factors. Home Care: Drink lots of fluids (at least 6-8 glasses a day, unless you must restrict fluids for other medical reasons). This will force the medicine into your urinary system and flush the bacteria out of your body. Avoid sexual intercourse until your symptoms are gone. Avoid caffeine, alcohol and spicy foods. These can irritate the bladder. A bladder infection is treated with antibiotics. You may also be given Pyridium (generic = phenazopyridine) to reduce the burning sensation. This medicine will cause your urine to become a bright orange color. The orange urine may stain clothing. You may wear a pad or panty-liner to protect clothing. Preventing Future Infections: Always wipe from front to back after a bowel movement. Keep the genital area clean and dry. Drink plenty of fluids each day to avoid dehydration. Both sexual partners should wash before intercourse. Urinate right after intercourse to flush out the bladder. Wear cotton underwear and cotton-lined panty hose; avoid tight-fitting pants. If you are on control pills and are having frequent bladder infections, discuss with your doctor. Follow Up: Return to this facility or see your doctor if ALL symptoms are not gone after three days of treatment. Get Prompt Medical Attention if any of the following occur: Fever of 100.4F (38C) or higher, or as directed by your healthcare provider No improvement by the third day of treatment Increasing back or abdominal pain Repeated vomiting; unable to keep medicine down Weakness, dizziness or fainting Vaginal discharge Pain, redness or swelling in the labia (outer vaginal area) Hydrocodone Bitartrate, Acetaminophen Oral tablet What is this medicine? ACETAMINOPHEN; HYDROCODONE (a set a YENIFER kenn fen; rachid droe KOE done) is a pain reliever. It is used to treat mild to moderate pain. How should I use this medicine? Take this medicine by mouth. Swallow it with a full glass of water. Follow the directions on the prescription label. If the medicine upsets your stomach, take the medicine with food or milk. Do not take more than you are told to take. Talk to your all around patternmaker regarding the use of this medicine in children. This medicine is not approved for use in children. What side effects may I notice from receiving this medicine? Side effects that you should report to your doctor or health regular senior care provider as soon as possible: allergic reactions like skin rash, itching or hives, swelling of the face, lips, or tongue breathing problems confusion feeling faint or lightheaded, falls stomach pain yellowing of the eyes or skin Side effects that usually do not require medical attention (report to your doctor or health regular senior care provider if they continue or are bothersome): nausea, vomiting stomach upset What may interact with this medicine? alcohol antihistamines isoniazid medicines for depression, anxiety, or psychotic disturbances medicines for sleep muscle relaxants naltrexone narcotic medicines (opiates) for pain phenobarbital ritonavir tramadol What if I miss a dose? If you miss a dose, take it as soon as you can. If it is almost time for your next dose, take only that dose. Do not take double or extra doses. Where should I keep my medicine? Keep out of the reach of children. This medicine can be abused. Keep your medicine in a safe place to protect it from theft. Do not share this medicine with anyone. Selling or giving away this medicine is dangerous and against the law. Store at room temperature between 15 and 30 degrees C (59 and 86 degrees F). Protect from light. Keep container tightly closed. Throw away any unused medicine after the expiration date. Discard unused medicine and used packaging carefully. Pets and children can be harmed if they find used or lost packages. What should I tell my health care provider before I take this medicine? They need to know if you have any of these conditions: brain tumor Crohn's disease, inflammatory bowel disease, or ulcerative colitis drink more than 3 alcohol-containing drinks per day drug abuse or addiction head injury heart or circulation problems kidney disease or problems going to the bathroom liver disease lung disease, asthma, or breathing problems an unusual or allergic reaction to acetaminophen, hydrocodone, other opioid analgesics, other medicines, foods, dyes, or preservatives or trying to get breast-feeding What should I watch for while using this medicine? Tell your doctor or health regular senior care provider if your pain does not go away, if it gets worse, or if you have new or a different type of pain. You may develop tolerance to the medicine. Tolerance means that you will need a higher dose of the medicine for pain relief. Tolerance is normal and is expected if you take the medicine for a long time. Do not suddenly stop taking your medicine because you may develop a severe reaction. Your body becomes used to the medicine. This does NOT mean you are addicted. Addiction is a behavior related to getting and using a drug for a non-medical reason. If you have pain, you have a medical reason to take pain medicine. Your doctor will tell you how much medicine to take. If your doctor wants you to stop the medicine, the dose will be slowly lowered over time to avoid any side effects. You may get drowsy or dizzy when you first start taking the medicine or change doses. Do not drive, use machinery, or do anything that may be dangerous until you know how the medicine affects you. Stand or sit up slowly. There are different types of narcotic medicines (opiates) for pain. If you take more than one type at the same time, you may have more side effects. Give your health care provider a list of all medicines you use. Your doctor will tell you how much medicine to take. Do not take more medicine than directed. Call emergency for help if you have problems breathing. The medicine will cause constipation. Try to have a bowel movement at least every 2 to 3 days. If you do not have a bowel movement for 3 days, call your doctor or health regular senior care provider. Too much acetaminophen can be very dangerous. Do not take Tylenol (acetaminophen) or medicines that contain acetaminophen with this medicine. Many non-prescription medicines contain acetaminophen. Always read the labels carefully. Ondansetron Hydrochloride Oral tablet What is this medicine? ONDANSETRON (on MARIANA se jose) is used to treat nausea and vomiting caused by chemotherapy. It is also used to prevent or treat nausea and vomiting after surgery. How should I use this medicine? Take this medicine by mouth with a glass of water. Follow the directions on your prescription label. Take your doses at regular intervals. Do not take your medicine more often than directed. Talk to your all around patternmaker regarding the use of this medicine in children. Special care may be needed. What side effects may I notice from receiving this medicine? Side effects that you should report to your doctor or health regular senior care provider as soon as possible: allergic reactions like skin rash, itching or hives, swelling of the face, lips or tongue breathing problems dizziness fast or irregular heartbeat feeling faint or lightheaded, falls fever and chills swelling of the hands or feet tightness in the chest Side effects that usually do not require medical attention (report to your doctor or health regular senior care provider if they continue or are bothersome): constipation or diarrhea headache What may interact with this medicine? Do not take this medicine with any of the following medications: -apomorphine -cisapride -dofetilide -dronedarone -pimozide -thioridazine -ziprasidone This medicine may also interact with the following medications: -carbamazepine -phenytoin -rifampicin -tramadol -other medicines that prolong the QT interval (cause an abnormal heart rhythm) What if I miss a dose? If you miss a dose, take it as soon as you can. If it is almost time for your next dose, take only that dose. Do not take double or extra doses. Where should I keep my medicine? Keep out of the reach of children. Store between 2 and 30 degrees C (36 and 86 degrees F). Throw away any unused medicine after the expiration date. What should I tell my health care provider before I take this medicine? They need to know if you have any of these conditions: heart disease history of irregular heartbeat liver disease low levels of magnesium or potassium in the blood an unusual or allergic reaction to ondansetron, granisetron, other medicines, foods, dyes, or preservatives or trying to get breast-feeding What should I watch for while using this medicine? Check with your doctor or health regular senior care provider right away if you have any sign of an allergic reaction. Cephalexin Monohydrate Oral tablet What is this medicine? CEPHALEXIN (sef a RAYNE in) is a cephalosporin antibiotic. It is used to treat certain kinds of bacterial infections It will not work for colds, flu, or other viral infections. How should I use this medicine? Take this medicine by mouth with a full glass of water. Follow the directions on the prescription label. This medicine can be taken with or without food. Take your medicine at regular intervals. Do not take your medicine more often than directed. Take all of your medicine as directed even if you think you are better. Do not skip doses or stop your medicine early. Talk to your all around patternmaker regarding the use of this medicine in children. While this drug may be prescribed for selected conditions, precautions do apply. What side effects may I notice from receiving this medicine? Side effects that you should report to your doctor or health regular senior care provider as soon as possible: allergic reactions like skin rash, itching or hives, swelling of the face, lips, or tongue breathing problems pain or trouble passing urine redness, blistering, peeling or loosening of the skin, including inside the mouth severe or watery diarrhea unusually weak or tired yellowing of the eyes, skin Side effects that usually do not require medical attention (report to your doctor or health regular senior care provider if they continue or are bothersome): gas or heartburn genital or anal irritation headache joint or muscle pain nausea, vomiting What may interact with this medicine? probenecid some other antibiotics What if I miss a dose? If you miss a dose, take it as soon as you can. If it is almost time for your next dose, take only that dose. Do not take double or extra doses. There should be at least 4 to 6 hours between doses. Where should I keep my medicine? Keep out of the reach of children. Store at room temperature between 59 and 86 degrees F (15 and 30 degrees C). Throw away any unused medicine after the expiration date. What should I tell my health care provider before I take this medicine? They need to know if you have any of these conditions: kidney disease stomach or intestine problems, especially colitis an unusual or allergic reaction to cephalexin, other cephalosporins, penicillins, other antibiotics, medicines, foods, dyes or preservatives or trying to get breast-feeding What should I watch for while using this medicine? Tell your doctor or health regular senior care provider if your symptoms do not begin to improve in a few days. Do not treat diarrhea with over the counter products. Contact your doctor if you have diarrhea that lasts more than 2 days or if it is severe and watery. If you have diabetes, you may get a false-positive result for sugar in your urine. Check with your doctor or health regular senior care provider. You have been given the following additional information: Vomiting (6Y-Adult) Diarrhea, Unk Cause (Adult) Report Pendg Bladder Infection, Female (Adult) Hydrocodone Bitartrate, Acetaminophen Oral tablet Ondansetron Hydrochloride Oral tablet Cephalexin Monohydrate Oral tablet Do not work for two days. (Electronically signed by Aliyah Wing P.A.-C 08/22/2016 18:36)
== END 2016-08-22 18:40 | disposition home or self-care (01) ==
LOC: ED SRH 15:20
DX: R11.10 Vomiting, unspecified (principal); R19.7 Diarrhea, unspecified; E86.0 Dehydration; N30.90 Cystitis, unspecified without hematuria
CPT/HCPCS: 90004; 90100; 90469; 92235; 93070; 94001; 94060; 95059